=== PATIENT | female | born 1965 | race Caucasian/White ===

== ENCOUNTER → 2024-01-13 14:06 | Outpatient (REF) | payer BC, SELFPAY | LOC: RCS 14:06 | PROVIDERS: ATTENDING PHYSICIAN Physical Medicine & Rehabilitation; FAMILY PHYSICIAN Family Medicine | DX: Z01.818 Encounter for other preprocedural examination (principal) | CPT/HCPCS: 93005 ==

== ENCOUNTER 2024-02-25 06:30 | Emergency (ER) | payer BC, SELFPAY ==
[2024-02-25 06:42] VITALS: BP 137/73
[2024-02-25 07:42] LABS: Urine Albumin Negative (Neg - Trace); Urine Bilirubin Negative (Negative); Urine Character Clear (Clear); Urine Color Amber; Urine Glucose Negative (Negative); Urine Ketone Negative (Negative); Urine Leukocyte Negative (Negative); Urine Nitrite Negative (Negative); Urine Occult Blood Negative (Negative); Urine Urobilinogen Negative (Neg - 1+)
--- NOTE | 2024-02-25 08:25 | ED.GENMED ---
History of Present Illness
General
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
Time Seen by Provider: 02/25/24 08:15
Travel History
Have you had any contact with someone who has COVID-19?: No
Do you have any symptoms of coronavirus? Fever > 100 degrees, chills, cough, shortness of breath, sore throat, loss of taste or smell, muscle aches, or headache?: No
History of Present Illness
History of Present Illness:
58-year-old female with history of COPD and spontaneous pneumothorax is status post thoracic surgery presents to the emergency department for evaluation of left flank pain and urinary burning beginning last night. States she has had chronic left
flank pain and did previously have an ultrasound showing nonobstructing kidney stones. Over the past day the pain has been different. She also notes trace blood and questionable urinary sediment in the toilet bowl. Denies any fevers but does have
chills and nausea with vomiting. No anterior abdominal pain. Denies any lower extremity paresthesias.
Past History
Past History
ED Past Medical History: Asthma, COPD and Other (pneumothoraces, status post thoracotomy with removal of blebs, depression, migraine headaches, rheumatoid arthritis, uterine ablation, COPD, asthma)
ED Past Surgical History: , Gynecological and Other (Thoracotomy)
Social History
Tobacco: Non-smoker
Alcohol: Occasional
Living: with family
Employment: Employed
Family History
Family History: Other (Rheumatoid arthritis)
Review of Systems
Review of Systems
Allergies reviewed?: Yes
All Other Systems: ROS reviewed and negative except as documented in HPI and ROS
Phy Exam
Physical Exam
Physical Exam:
GEN: Well appearing, NAD, WDWN
HEENT: Oral mucosa moist, no scleral icterus
Cardiac: Regular rate
Lung: No respiratory distress, no tachypnea
Abdomen: Soft, nontender
MSK: No gross deformity or injuries
Skin: Good color, no pallor or jaundice, no rashes
Neuro: AO x3, moves all extremities freely
Psych: Calm, cooperative
Course
Orders/Labs/Results
Orders:
Orders
02/25/24 07:06
Urinalysis Reflex To Culture Urgent
Date Specimen was Collected: 02/25/24
Time Specimen was Collected: 06:46
02/25/24 08:26
CT Abd/pel Without Iv Or Oral Urgent
Comment:
Reason For Exam: L flank pain
Ketorolac [Toradol] 15 mg IV NOW STA
Ondansetron Injectable [Zofran] 4 mg IV NOW STA
02/25/24 08:35
Complete Blood Count/With Diff Urgent
Comprehensive Metabolic Panel Urgent
Abnormal Lab Results
02/25/24
08:35
WBC 12.2 H 10^3/uL
(4.8-10.8)
RBC 4.13 L 10^6/uL
(4.20-5.40)
Hct 36.5 L %
(37.0-47.0)
RDW 14.8 H %
(11.5-14.5)
Abs Immat Gran (auto) 0.1 H 10^3/uL
(0-0.05)
Absolute Neuts (auto) 8.9 H 10^3/uL
(1.4-6.5)
Absolute Monos (auto) 0.8 H 10^3/uL
(0.1-0.6)
Immature Gran % 0.7 H %
(0-0.5)
Lymphocytes % 18.0 L %
(20.5-51.1)
Carbon Dioxide 31 H mmol/L
(22-30)
BUN 24 H mg/dl
(7-17)
Total Protein 6.1 L g/dl
(6.3-8.2)
02/25/24 08:35
02/25/24 08:35
Vital Signs
Initial and Last Documented VS:
Initial Vital Signs
Temp Pulse Resp BP Pulse Ox
97.9 F 65 18 137/73 100
02/25/24 06:42 02/25/24 06:42 02/25/24 06:42 02/25/24 06:42 02/25/24 06:42
Last Documented Vital Signs
Temp Pulse Resp BP Pulse Ox
97.9 F 61 16 131/72 98
02/25/24 06:42 02/25/24 10:26 02/25/24 10:26 02/25/24 10:26 02/25/24 10:26
MDM/Problems Addressed
MDM/Problems Addressed:
CT reveals a distal left ureteral stone. Although it is 7 mm in size, she has no pain after administration of Toradol. Will discharge on NSAIDs and Flomax, supportive care and return parameters discussed. No evidence for infection, no evidence of
UTI, no indication for urgent procedural intervention
*Critical Care Note
Total Time (30-74mins, 75-104mins- exclusive of procedures): Not Applicable
ED Attending Note
-
Portions of this chart may have been created with voice recognition software.� Occasional wrong word or��sound alike� substitutions may have occurred due to the inherent limitations of voice recognition software.
Discharge Plan
Departure
Patient Disposition: Home (Routine Discharge)
Date of Disposition: 02/25/24
Time of Disposition: 09:56
Patient with high blood pressure during this ER visit?: No
Discharge Problem:
Ureterolithiasis
Instructions: Kidney Stone, Adult ED
Prescriptions:
New
ketorolac 10 mg tablet
10 mg PO Q8H PRN (Reason: Pain) Qty: 12 0RF
Rx Instructions:
maximum total duration of 5 days from all oral, intranasal, or parenteral formulations
tamsulosin [Flomax] 0.4 mg capsule
0.4 mg PO HS Qty: 10 0RF
No Action
lorazepam 0.5 MG tablet
0.5 mg PO Q4HPRN PRN (Reason: anxietY)
Patient Comments:
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
topiramate 100 MG tablet
200 mg PO QPM
ondansetron HCl 4 MG tablet
4 mg PO TIDPRN PRN (Reason: N/V)
methylprednisolone 4 MG tablet
12 mg PO DAILY
meclizine 25 MG tablet
25 mg PO [id number] PRN (Reason: VERTIGO)
methotrexate sodium (PF) 25 MG/ML solution
60 mg IJ .ON HOLD
Patient Comments:
patient said she not ure what she draw up she think it 60 ? she said the syringe is small like an insulon syringe
albuterol sulfate 1 PUFF HFA aerosol inhaler
1 puff inhalation R BID
aspirin 81 MG tablet,delayed release (DR/EC)
81 mg PO QPM
Patient Comments:
only take until d dimer goes down , next blood work in 1 week
tramadol 50 MG tablet
50 mg PO BIDPRN PRN (Reason: if maxalt doesnot work)
Patient Comments:
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
rizatriptan 10 MG tablet,disintegrating
10 mg PO DAILYPRN PRN (Reason: mirgrianes)
folic acid 1 MG tablet
1 mg PO DAILY
topiramate 100 MG tablet
100 mg PO DAILY
bupropion HCl 150 MG tablet extended release 24 hr
150 mg PO DAILY
cholecalciferol (vitamin D3) 1,000 UNITS tablet
1,000 units PO DAILY
oxycodone-acetaminophen [Percocet] 5-325 mg tablet
1 tab PO Q6HPRN PRN (Reason: pain) Qty: 10 0RF
Referrals:
Preston Cesar MD [Active] -
Apolonia Garsia DO [Family Provider] -
Interventions
Interventions:
*Risk Screen - Suicide Last Done: 02/25/24 06:42
*General Assessment Last Done: 02/25/24 09:02
*Neglect/Abuse Screening Last Done: 02/25/24 06:42
ED- Fall Risk Assessment Last Done: 02/25/24 09:02
*ED COVID-19 Vaccine History Last Done: 02/25/24 06:42
*Nursing Disposition Last Done: 02/25/24 10:00
ED-Female Genitourinary Assessment Last Done: 02/25/24 09:02
Discharge Date and Time
Discharge Date/Time: 02/25/24 10:00
Print Language: TELUGU
[2024-02-25] MEDS: ZOFRAN 4 MG IV (08:33)
[2024-02-25] MEDS: TORADOL 15 MG IV (08:34)
[2024-02-25 08:47] LABS: % Basophils 0.6 % (0-2); % Immature Granulocytes 0.7 % (0-0.5); % Monocytes 6.7 % (1.7-9.3); Absolute Basophils 0.1 10^3/uL (0-0.2); Absolute Eosinophils 0.1 10^3/uL (0-0.7); Absolute Immature Granulocytes 0.1 10^3/uL (0-0.05); Absolute Lymphocytes 2.2 10^3/uL (1.2-3.4); Absolute Monocytes 0.8 10^3/uL (0.1-0.6); Absolute Neutrophils 8.9 10^3/uL (1.4-6.5); Hematocrit 36.5 % (37.0-47.0); Hemoglobin 12.1 g/dL (12.0-16.0); Mean Corp Hgb Conc. 33.2 g/dL (33.0-37.0); Mean Corpuscular Hgb 29.3 pg (27.0-31.0); Mean Corpuscular Volume 88.4 fL (81.0-99.0); Mean Platelet Volume 8.9 fL (7.4-10.4); Nucleated Red Blood Cells % 0 %; Platelet Count 279 10^3/uL (130-400); Red Blood Cell Count 4.13 10^6/uL (4.20-5.40); Red Cell Dist. Width 14.8 % (11.5-14.5); White Blood Cell Count 12.2 10^3/uL (4.8-10.8)
[2024-02-25 08:59] LABS: ALT (SGPT) 14 U/L (0-35); AST (SGOT) 20 U/L (14-36); Albumin 3.8 g/dl (3.5-5.0); Alkaline Phosphatase 76 U/L (38-126); Blood Urea Nitrogen 24 mg/dl (7-17); Calcium 9.6 mg/dl (8.4-10.2); Carbon Dioxide 31 mmol/L (22-30); Chloride 103 mmol/L (98-107); Glucose 99 mg/dl (70-99); Potassium 3.7 mmol/L (3.5-5.1); Sodium 137 mmol/L (135-145); Total Bilirubin 0.4 mg/dl (0.2-1.3); Total Protein 6.1 g/dl (6.3-8.2); eGFR > 60.00
[2024-02-25 10:26] VITALS: BP 131/72
== END 2024-02-25 10:00 | disposition home or self-care (01) ==
LOC: EMR 06:30
PROVIDERS: EMERGENCY PHYSICIAN Emergency Medicine; FAMILY PHYSICIAN Family Medicine
DX: N20.1 Calculus of ureter (principal); Z87.442 Personal history of urinary calculi
CPT/HCPCS: 99284; 96374; 96375; 74176; 80053; 81003; 85025

== ENCOUNTER 2024-03-01 06:10 | Day surgery (SDC) | payer BC, MEDICARE, SELFPAY ==
[2024-03-01] VITALS (11 sets, daily range): BP systolic 100–134; BP diastolic 41–82; BMI 23.6
[2024-03-01] MEDS: NORMOSOL-R 1000 IV (07:31)
[2024-03-01] MEDS: Pyridium 200 MG PO (09:22)
[2024-03-05 15:21] LABS: Stone Analysis Mass 17 mg
== END 2024-03-01 11:10 | disposition home or self-care (01) ==
LOC: SDS 06:10
PROVIDERS: ATTENDING PHYSICIAN Urology
DX: N20.2 Calculus of kidney with calculus of ureter (principal)
CPT/HCPCS: 52353; 74018; 76000; 82365; C1769

== ENCOUNTER → 2024-03-31 15:52 | Outpatient (REF) | payer BC, MEDICARE, SELFPAY ==
[2024-03-31 16:23] LABS: % Basophils 0.9 % (0-2); % Eosinophils 2.4 % (0-6); % Immature Granulocytes 0.3 % (0-0.5); % Lymphocytes 38.6 % (20.5-51.1); % Monocytes 4.5 % (1.7-9.3); % Neutrophils 53.3 % (42.2-75.2); Absolute Basophils 0.1 10^3/uL (0-0.2); Absolute Eosinophils 0.2 10^3/uL (0-0.7); Absolute Lymphocytes 2.7 10^3/uL (1.2-3.4); Absolute Monocytes 0.3 10^3/uL (0.1-0.6); Absolute Neutrophils 3.7 10^3/uL (1.4-6.5); Hematocrit 37.7 % (37.0-47.0); Hemoglobin 12.2 g/dL (12.0-16.0); Mean Corp Hgb Conc. 32.4 g/dL (33.0-37.0); Mean Corpuscular Hgb 28.4 pg (27.0-31.0); Mean Corpuscular Volume 87.9 fL (81.0-99.0); Mean Platelet Volume 9.5 fL (7.4-10.4); Nucleated Red Blood Cells % 0 %; Platelet Count 242 10^3/uL (130-400); Red Blood Cell Count 4.29 10^6/uL (4.20-5.40); Red Cell Dist. Width 13.9 % (11.5-14.5); White Blood Cell Count 6.9 10^3/uL (4.8-10.8)
[2024-03-31 16:38] LABS: ALT (SGPT) 27 U/L (0-35); AST (SGOT) 33 U/L (14-36); Albumin 4.3 g/dl (3.5-5.0); Alkaline Phosphatase 71 U/L (38-126); Blood Urea Nitrogen 16 mg/dl (7-17); Calcium 9.7 mg/dl (8.4-10.2); Carbon Dioxide 26 mmol/L (22-30); Chloride 104 mmol/L (98-107); Glucose 120 mg/dl (70-99); Potassium 3.9 mmol/L (3.5-5.1); Sodium 140 mmol/L (135-145); Total Bilirubin 0.7 mg/dl (0.2-1.3); Total Protein 6.5 g/dl (6.3-8.2); eGFR > 60.00
[2024-03-31 16:40] LABS: C-Reactive Protein < 5.00 mg/L (0.0-10.00)
[2024-03-31 16:41] LABS: Erythrocyte Sed Rate 18 mm/hour (0-20)
== END ==
LOC: REG 15:52
PROVIDERS: ATTENDING PHYSICIAN Physician Assistant; FAMILY PHYSICIAN Family Medicine
DX: M06.00 Rheumatoid arthritis without rheumatoid factor, unspecified site (principal); Z79.60 Long term (current) use of unspecified immunomodulators and immunosuppressants
CPT/HCPCS: 36415; 80053; 85025; 85652; 86140

== ENCOUNTER → 2024-04-11 11:50 | Outpatient (REF) | payer BC, MEDICARE, SELFPAY | LOC: HWRAD 11:50 | PROVIDERS: ATTENDING PHYSICIAN Internal Medicine Rheumatology; FAMILY PHYSICIAN Family Medicine | DX: M81.0 Age-related osteoporosis without current pathological fracture (principal) | CPT/HCPCS: 77080 ==

== ENCOUNTER → 2024-04-20 10:28 | Outpatient (REF) | payer BC, MEDICARE, SELFPAY ==
[2024-04-20 11:40] VITALS: BP 120/56; BP_SYST 88
== END ==
LOC: RADI 10:28
PROVIDERS: ATTENDING PHYSICIAN Internal Medicine Endocrinology, Diabetes & Metabolism; FAMILY PHYSICIAN Family Medicine
DX: E04.1 Nontoxic single thyroid nodule (principal)
CPT/HCPCS: 88173; 10005

== ENCOUNTER → 2024-05-09 10:24 | Outpatient (REF) | payer BC, SELFPAY ==
[2024-05-09 11:53] LABS: HDL Cholesterol 83 mg/dl; LDL Cholesterol, Calculated 78 mg/dl; Total Cholesterol 178 mg/dl (50-199); Triglyceride 89 mg/dl (10-149); Very Low Density Lipoprotein 17 mg/dl (0-30)
[2024-05-09 12:11] LABS: FSH 81.6 mIU/ml; Prolactin 10.6 ng/ml (3.0-18.6)
[2024-05-09 12:25] LABS: TSH Reflex To Free T4 2.64 uIU/ml (0.47-4.68)
[2024-05-09 12:26] LABS: Cortisol, Random 6.6 ug/dl; Estradiol 26.7 pg/ml
[2024-05-10 16:05] LABS: IGF-1 Z Score Calculation 0.3; Insulin-like Growth Factor I 132 ng/mL (43-241)
[2024-05-11 08:04] LABS: Quantiferon Mitogen minus NIL 9.98 IU/mL; Quantiferon NIL 0.02 IU/mL; Quantiferon Plus TB1 minus NIL 0.02 IU/mL (<=0.34); Quantiferon Plus TB2 minus NIL 0.04 IU/mL (<=0.34); Quantiferon TB Gold Plus Negative (Negative)
== END ==
LOC: REG 10:24
PROVIDERS: ATTENDING PHYSICIAN Internal Medicine Endocrinology, Diabetes & Metabolism; FAMILY PHYSICIAN Family Medicine; REFERRING PHYSICIAN Internal Medicine Rheumatology
DX: E78.5 Hyperlipidemia, unspecified (principal); E23.6 Other disorders of pituitary gland; M06.00 Rheumatoid arthritis without rheumatoid factor, unspecified site
CPT/HCPCS: 36415; 80061; 82533; 82670; 83001; 83002; 84146; 84305; 84443; 86480

== ENCOUNTER 2024-07-07 21:36 | Observation (INO) | payer BC, MEDICARE, SELFPAY ==
[2024-07-07] VITALS (13 sets, daily range): BP systolic 99–146; BP diastolic 63–84; BMI 26.8; BMI 24.3; BMI 24.8
--- NOTE | 2024-07-07 18:01 | ED.PDOC.TRB ---
ED Provider Triage
-
Patient seen by provider in Triage?: Seen in Triage
59-year-old female presents with chest pain for 4 to 5 days burning in nature to the lower chest and her back. Not pleuritic in nature. No recent travel or surgery. Vitals are stable. She states she recently had a calcium score of the heart
which showed calcification of one of the arteries. 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 EKG labs and troponin ordered.
[2024-07-07 18:23] LABS: % Basophils 1.1 % (0-2); % Eosinophils 1.3 % (0-6); % Immature Granulocytes 0.7 % (0-0.5); % Lymphocytes 30.5 % (20.5-51.1); % Monocytes 6.5 % (1.7-9.3); % Neutrophils 59.9 % (42.2-75.2); Absolute Basophils 0.1 10^3/uL (0-0.2); Absolute Eosinophils 0.1 10^3/uL (0-0.7); Absolute Immature Granulocytes 0.1 10^3/uL (0-0.05); Absolute Lymphocytes 2.3 10^3/uL (1.2-3.4); Absolute Monocytes 0.5 10^3/uL (0.1-0.6); Absolute Neutrophils 4.5 10^3/uL (1.4-6.5); Hematocrit 38.3 % (37.0-47.0); Hemoglobin 12.8 g/dL (12.0-16.0); Mean Corp Hgb Conc. 33.4 g/dL (33.0-37.0); Mean Corpuscular Hgb 28.7 pg (27.0-31.0); Mean Corpuscular Volume 85.9 fL (81.0-99.0); Mean Platelet Volume 9.7 fL (7.4-10.4); Nucleated Red Blood Cells % 0 %; Platelet Count 269 10^3/uL (130-400); Red Blood Cell Count 4.46 10^6/uL (4.20-5.40); Red Cell Dist. Width 15.2 % (11.5-14.5); White Blood Cell Count 7.5 10^3/uL (4.8-10.8)
[2024-07-07 18:29] LABS: ALT (SGPT) 25 U/L (0-35); AST (SGOT) 32 U/L (14-36); Albumin 4.4 g/dl (3.5-5.0); Alkaline Phosphatase 61 U/L (38-126); Blood Urea Nitrogen 18 mg/dl (7-17); Calcium 9.7 mg/dl (8.4-10.2); Carbon Dioxide 29 mmol/L (22-30); Chloride 103 mmol/L (98-107); Glucose 146 mg/dl (70-99); Potassium 3.7 mmol/L (3.5-5.1); Sodium 141 mmol/L (135-145); Total Bilirubin 0.5 mg/dl (0.2-1.3); Total Protein 6.6 g/dl (6.3-8.2); eGFR > 60.00
[2024-07-07 18:40] LABS: Troponin I < 0.012 ng/ml
[2024-07-07] MEDS: NITROSTAT (SUBLINGUAL) 0.4 MG SL ×2 (20:06→23:18)
--- NOTE | 2024-07-07 20:44 | ED.GENMED ---
History of Present Illness
General
Chief Complaint: Chest Pain
Time Seen by Provider: 07/07/24 18:55
History of Present Illness
History of Present Illness:
59-year-old female with history of RA presents to the emergency department for evaluation of exertional shortness of breath and chest discomfort ongoing for the past 3 to 4 days. Over the past 2 days she has had increased 'indigestion' present at
all times that is not receptive to her normal pantoprazole as well as [id number] antacids. Denies any positional nature of symptoms and does note that the heartburn seems to worsen with exertion. She is scheduled for a stress test through
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 She also had a coronary calcium score done at [facility] approximately 18 months ago that showed an LAD score of 37 with no disease elsewhere.
Past History
Past History
ED Past Medical History: Asthma, COPD and Other (pneumothoraces, status post thoracotomy with removal of blebs, depression, migraine headaches, rheumatoid arthritis, uterine ablation, COPD, asthma)
ED Past Surgical History: , Gynecological and Other (Thoracotomy)
Social History
Tobacco: Non-smoker
Alcohol: Occasional
Living: with family
Employment: Employed
Family History
Family History: Other (Rheumatoid arthritis)
Review of Systems
Review of Systems
Allergies reviewed?: Yes
All Other Systems: ROS reviewed and negative except as documented in HPI and ROS
Phy Exam
Physical Exam
Physical Exam:
GEN: Well appearing, NAD, WDWN
HEENT: Oral mucosa moist, no scleral icterus
Cardiac: Regular rate and rhythm, no murmurs
Lung: No respiratory distress, no tachypnea, lungs clear to auscultation bilaterally
MSK: No gross deformity or injuries
Skin: Good color, no pallor or jaundice, no rashes
Neuro: AO x3, moves all extremities freely
Psych: Calm, cooperative
Scores
Heart Score for Chest Pain Patients
STEMI patient?: No
History: Moderately Suspicious
ECG: Normal
Age: >45 - <65 years
Risk Factors: 1 or 2 Risk Factors
Troponin: </= Normal Limit
Heart Score for Chest Pain Patients: 3
Heart Score Risk: 2.5% MACE over next 6 weeks
Course
Orders/Labs/Results
Orders:
Orders
07/07/24 17:54
ECG [Electrocardiogram (*1)] Urgent
Reason for Study: Chest Pain
07/07/24 17:55
EKG- Treatment ONCE
07/07/24 18:00
CR Chest - 2 Views Urgent
Comment:
Reason For Exam: chest pain
07/07/24 18:06
Complete Blood Count/With Diff Urgent
Comprehensive Metabolic Panel Urgent
Troponin I Urgent
07/07/24 19:49
Nitroglycerin Sublingual [Nitrostat (Sublingual)] 0.4 mg SL NOW STA
Abnormal Lab Results
07/07/24
18:06
RDW 15.2 H %
(11.5-14.5)
Abs Immat Gran (auto) 0.1 H 10^3/uL
(0-0.05)
Immature Gran % 0.7 H %
(0-0.5)
BUN 18 H mg/dl
(7-17)
Glucose 146 H mg/dl
(70-99)
07/07/24 18:06
07/07/24 18:06
Vital Signs
Initial and Last Documented VS:
Initial Vital Signs
Temp Pulse Resp BP Pulse Ox
98 F 83 18 139/69 100
07/07/24 17:57 07/07/24 17:57 07/07/24 17:57 07/07/24 17:57 07/07/24 17:57
Last Documented Vital Signs
Temp Pulse Resp BP Pulse Ox
98 F 58 18 119/74 98
07/07/24 17:57 07/07/24 20:05 07/07/24 20:05 07/07/24 20:11 07/07/24 20:05
MDM/Problems Addressed
MDM/Problems Addressed:
Patient is moderate risk for ACS based on her clinical picture however I am concerned for the rest symptoms that are not resolving. However EKG is nonischemic and troponin is reassuring. She was given 1 dose of sublingual nitroglycerin with
resolution of symptoms. This is highly concerning for acute coronary syndrome. Will admit to the hospitalist service for further cardiac testing and cardiology consult if warranted.
Comment
Comment:
EKG independently interpreted by me shows normal sinus rhythm with a right bundle branch block, no ischemic changes, no changes when compared to EKG from January 2024
*Critical Care Note
Total Time (30-74mins, 75-104mins- exclusive of procedures): Not Applicable
ED Attending Note
-
Portions of this chart may have been created with voice recognition software.� Occasional wrong word or��sound alike� substitutions may have occurred due to the inherent limitations of voice recognition software.
Discharge Plan
Departure
Patient Disposition: Admit
Date of Disposition: 07/07/24
Time of Disposition: 20:44
Admit to: Telemetry
Presentation/result/management discussed w/ accepting MD/DO: Hospitalist
Discharge Problem:
Chest pain with moderate risk of acute coronary syndrome
Prescriptions:
No Action
albuterol sulfate 1 PUFF HFA aerosol inhaler
1 puff inhalation PRN PRN (Reason: sob)
tramadol 50 MG tablet
50 mg PO BIDPRN PRN (Reason: if maxalt doesnot work)
Patient Comments:
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
folic acid 1 MG tablet
1 mg PO DAILY
cyclobenzaprine 10 mg Tablet
10 mg PO PRN PRN (Reason: neck pain)
gabapentin 400 mg Capsule
400 mg PO TID
pantoprazole 40 mg Tablet,Delayed Release (Dr/Ec)
40 mg PO DAILY
eletriptan 40 mg Tablet
40 mg PO PRN PRN (Reason: migraines)
rosuvastatin [Crestor] 5 mg Tablet
5 mg PO DAILY
cholecalciferol (vitamin D3) [Vitamin D3] 50 mcg (2,000 unit) Capsule
50 mcg PO DAILY
Orencia 125 mg/mL Syringe
250 mg SC DIRECTED
Referrals:
Apolonia Garsia DO [Family Provider] -
Interventions
Interventions:
*Risk Screen - Suicide Last Done: 07/07/24 18:26
*General Assessment Last Done: 07/07/24 18:26
*Neglect/Abuse Screening Last Done: 07/07/24 18:26
ED- Fall Risk Assessment Last Done: 07/07/24 18:26
*ED COVID-19 Vaccine History Last Done: 07/07/24 18:26
ED- Cardiac Assessment Last Done: 07/07/24 18:26
Discharge Date and Time
Print Language: CROATIAN
--- NOTE | 2024-07-07 20:47 | HPS.HSE ---
Family Physician
-
Family Physician: Apoolnia Garsia, DO
Chief Complaint
-
chest pain
History of Present Illness
Ms. Gladys Hammond is a 59 yo woman with hx asthma/COPD, pneumothoraces s/p thoracotomy with removal of blebs, migraine, RA presents to the ER with chest discomfort.
She states that since Thursday she has had mid epigastric discomfort that she thought was gastritis. She took Mylanta and Tums without relief. She also described increased shortness of breath with any exertion, she noticed when walking up a flight
of stairs. She states exertion affects her breathing but not her chest discomfort. Food does not affect discomfort. The pain has been increasing in intensity since Thursday and then reports it completely resolved after she was given nitro here in
the ER.
She has been eating less because she thought she had indigestion but eating does not exacerbate pain. + nausea, no vomiting. She has felt constipated and treated herself with an enema this morning. No fevers/chills. + headaches (chronic). No LE
swelling.
Patient recently had testing that showed elevated calcium score and was due for stress test next week with her cardiology at [facility].
Medical History
Past Medical History
Past Medical History: Reports Other (asthma/COPD, pneumothoraces s/p thoracotomy with removal of blebs, migraine, RA)
Past Surgical History: Reports Other (Thoracotomy, Tonsilectomy, Ortho, )
Social History
Tobacco: Non-smoker
Alcohol: Occasional
Family History
Family History: Not pertinent
Allergies / Home Medications
Allergies reflects when Allergies were last updated in [employer].
Home Medications with original date entered in [employer]
Allergy/Medication List:
Allergies
Allergy/AdvReac Type Severity Reaction Status Date / Time
amoxicillin [Amoxicillin] Allergy Hives Verified 07/07/24 17:57
Cephalosporins Allergy Hives Verified 07/07/24 17:57
Penicillins Allergy Hives Verified 07/07/24 17:57
prochlorperazine edisylate Allergy anxiety Verified 07/07/24 17:57
[From Compazine]
prochlorperazine maleate Allergy anxiety Verified 07/07/24 17:57
[From Compazine]
propoxyphene HCl Allergy Rash Verified 07/07/24 17:57
[From Darvon]
tetracycline [Tetracycline] Allergy Hives Verified 07/07/24 17:57
Bactrim Allergy Mild Hives Uncoded 07/07/24 17:57
Home Medications
albuterol sulfate 90 mcg/actuation aerosol inhaler 1 puff inhalation PRN PRN sob 08/01/21
folic acid 1 mg tablet 1 mg PO DAILY 08/28/21
tramadol 50 mg tablet 50 mg PO BIDPRN PRN if maxalt doesnot work 08/28/21
abatacept 125 mg/mL subcutaneous syringe (Orencia) 250 mg SC DIRECTED 02/29/24
cholecalciferol (vitamin D3) 50 mcg (2,000 unit) capsule (Vitamin D3) 50 mcg PO DAILY 02/29/24
cyclobenzaprine 10 mg tablet 10 mg PO PRN PRN neck pain 02/29/24
eletriptan 40 mg tablet 40 mg PO PRN PRN migraines 02/29/24
gabapentin 400 mg capsule 400 mg PO TID 02/29/24
pantoprazole 40 mg tablet,delayed release 40 mg PO DAILY 02/29/24
rosuvastatin 5 mg tablet (Crestor) 5 mg PO DAILY 02/29/24
Review of Systems
-
History Source: Patient
A 12 point ROS was completed and negative except as noted: Yes
Physical Exam
Vital Signs
Vital Signs
Temp Pulse Resp BP Pulse Ox
98 F 58 18 119/74 98
07/07/24 17:57 07/07/24 20:05 07/07/24 20:05 07/07/24 20:11 07/07/24 20:05
Physical Exam
General: No Apparent Distress
HEENT: PERRLA
Respiratory: Clear; No Wheezes
Cardiac: S1/S2 and Regular Rhythm
GI: Soft and Non Tender
Musculoskeletal: No Edema
Skin: Warm and Dry; No Rash
Neuro: AO x 3
Psych: Calm
Laboratory Results
-
07/07/24 18:06
07/07/24 18:06
Laboratory Results
Total Bilirubin 0.5 mg/dl (0.2-1.3) 07/07/24 18:06
AST 32 U/L (14-36) 07/07/24 18:06
ALT 25 U/L (0-35) 07/07/24 18:06
Alkaline Phosphatase 61 U/L (38-126) 07/07/24 18:06
Troponin I < 0.012 ng/ml 07/07/24 18:06
Data Reviewed
-
Diagnostic Radiology: Report Reviewed by me
Lab Data: Labs Reviewed by me
Impression/Plan
-
Ms. Gladys Hammond is a 59 yo woman with hx asthma/COPD, pneumothoraces s/p thoracotomy with removal of blebs, migraine, RA presents to the ER with chest discomfort.
Triage VS: T 98, P 83, RR 18, BP 139/69, SpO2 100%
LABS: WBC 7.5, Hg 12.8, PLT 269, Na 141, K+ 3.7, Cl 103, BUN 18, Cr 0.8, Glucose 146, liver enzymes WNL, Trop < 0.012
EKG: NSR with RBBB, no significant change from 01/13/24
Chest pain
-parts of story concerning for angina, associated with shortness of breath with exertion although chest discomfort not affected by activity. Reassuring that Troponin is negative and symptoms on-going x several days. Per patient, completely
relieved with nitro
-will give full dose asa now and continue 81mg PO QD
-admit to telemetry, observation
-trend Troponins
-Cardiology consult
-NPO after MN
-lipid panel and A1c in AM
Hyperlipidemia
-COOK LARDER statin
GERD
-unclear if epigastric discomfort related to GERD as well, although per patient this is more intense
-will give IV Protonix while here
Hx Pneumothoraces s/p Thoracotomy
RA
-Takes Methotrexate and Orencia as outpatient
Hx Migraines
-hold COOK LARDER Eletriptan while working up angina
Cervical Radiculopathy
-COOK LARDER Gabapentin
-COOK LARDER Cyclobenzaprine
DVT PPx SCD
FULL CODE
[2024-07-07] MEDS: ASPIRIN 325 MG PO (21:19)
[2024-07-07] MEDS: PROTONIX IV 40 MG IV (21:19)
[2024-07-07] MEDS: NEURONTIN 400 MG PO (23:18)
[2024-07-07] MEDS: CRESTOR 5 MG PO (23:18)
--- NOTE | 2024-07-07 23:30 | PTCARENOTE ---
Addendum entered by Isreal Al RN 07/08/24 05:45:
House RAUL Contreras updated on pt receiving PRN dose of nitrostat and that the pt's chest pain resolved after 1 administration of nitrostat.
Original Note:
Pt arrived to unit from ED and ambulated independently from stretcher to bed. Pt is AAOx3, VS stable on admission. Pt reports 4/10 sternal/substernal pain; PRN nitro SL provided to pt; pt reports that chest pain resolved after nitro
administration. Plan of care discussed with pt and pt's Jerel at bedside.
[2024-07-08] VITALS (14 sets, daily range): BP systolic 95–118; BP diastolic 55–92; BMI 24.8
[2024-07-08 00:51] LABS: Troponin I < 0.012 ng/ml
[2024-07-08 03:56] LABS: Troponin I < 0.012 ng/ml
[2024-07-08 07:47] LABS: Blood Urea Nitrogen 15 mg/dl (7-17); Calcium 9.4 mg/dl (8.4-10.2); Carbon Dioxide 29 mmol/L (22-30); Chloride 105 mmol/L (98-107); Estimated Creatinine Clearance 73 ml/min; Glucose 83 mg/dl (70-99); HDL Cholesterol 76 mg/dl; LDL Cholesterol, Calculated 55 mg/dl; Potassium 3.7 mmol/L (3.5-5.1); Sodium 144 mmol/L (135-145); Total Cholesterol 143 mg/dl (50-199); Triglyceride 60 mg/dl (10-149); Very Low Density Lipoprotein 12 mg/dl (0-30); eGFR > 60.00
--- NOTE | 2024-07-08 08:19 | W.PN.HOSP.TC ---
Addendum entered and electronically signed by Gregor Baez MD 07/08/24 21:58:
Attending Addendum-
I saw and evaluated the patient. I reviewed the resident�s note and agree with findings and plan as documented in the resident�s note. Sub: continues to have intermittent central/left sided CP Full 12 point ROS reviewed and negative except as
documented Exam: Vitals reviewed in chart GEN- NAD heart RRR lungs clear abd soft LE no edema
# Chest pain
-highly suspicious for cardiac etiology
-completely relieved with nitro
-cont hep gtt
-trend Troponins
-check echo
-Cardiology input appreciated
-for cardiac cath 07/08
# Hyperlipidemia
- cont crestor
# GERD
-unclear if epigastric discomfort related to GERD as well, although per patient this is more intense
-cont protonix
# Depression
- cont Wellbutrin
# Hx Pneumothoraces s/p Thoracotomy
# RA
-Takes Methotrexate and Orencia as outpatient
# Hx Migraines
-hold Eletriptan
# Cervical Radiculopathy
-cont Gabapentin
-cont Cyclobenzaprine
DVT PPx SCD
FULL CODE
Dispo possible DC home after cath if clean
Time spent coordinating care, review of plan of care with resident, personally reviewed records in EMR, med rec, consults, notes, labs, radiology, d/w nursing � 55 mins
Original Note:
Today's Communication/Plan
-
Echo pending, cardiology consulted
Assessment / Plan
Assessment / Plan
59 year old female with PMH asthma, COPD, pneumothoraces s/p thoracotomy with bleb resection, HLD, RA, hiatal hernia who presented to ED 07/07 for chest pain.
#Chest pain
#Shortness of breath
- Differential diagnosis includes ACS, angina, esophageal spasm, hiatal hernia
- Relieved by nitro raises concern for angina or spasm. However, reassured by stable vitals, EKG, negative troponin
- Patient previously tried inhaler, tylenol, advil, dietary modifications, mylanta, pantoprazole, gabapentin, lorazepam, methylprednisolone with no relief, which decreases concern for asthma, msk, GERD, anxiety, or RA related causes of chest pain.
- Reviewed chest xray report and images, negative for acute cardiopulm abnormality.
- Lipid panel, A1C, BMP wnl
- Echo performed- report pending.
- Cardiology consulted, appreciate recs.
- Continue telemetry, ASA, statin, nitro prn, trend troponin, NPO
#Asthma, COPD- home albuterol inhaler prn
#HLD- home home rosuvastatin 5mg daily
#RA, cervical radiculopathy- continue home gabapentin 400mg TID, cyclobenzaprine prn; has not required tramadol in >1 month
#GERD- continue home pantoprazole 40mg daily
#migraine- asymptomatic, has not required home eletriptan in 1-2 months
#anxiety- continue home buproprion 150mg daily
Diet: NPO
DVT ppx: ambulation as tolerated, SCDs
Dispo planning: TBD, anticipate discharge home
Anticipated Discharge: 24 - 48 hours
Subjective/Interval History
-
Date of Service: July 08, 2024
Overnight, her chest pain was relieved with nitro. This morning, she reports that her chest pain is present while she is resting in bed and she rates it a 3/10 in intensity. She says this is the same pain that she has been experiencing at home. At
time of this evaluation, she continues to report shortness of breath which is worse if laying flat and now needs 2 pillows instead of 1 at night to sleep. Also reports intermittent light headedness. She denies fevers, chills, dizziness,
palpitations, syncope/presyncope, cough, nausea, vomiting. She is tolerating PO diet and denies difficulty, pain, choking, coughing when she is eating/swallowing. Last bowel movement was yesterday morning and she denies diarrhea, constipation, black
or blood stools. She ambulates without assistance.
Objective Data
-
Labs:
Laboratory Results
07/08/24
06:24
Sodium 144
Potassium 3.7
Chloride 105
Carbon Dioxide 29
BUN 15
Creatinine 0.8
Glucose 83
Calcium 9.4
Vital Signs:
Vital Signs
Temp Pulse Resp BP Pulse Ox
97.6 F 60 18 107/68 97
07/08/24 03:54 07/08/24 03:54 07/08/24 03:54 07/08/24 03:54 07/08/24 03:54
I&O
07/07/24 07/08/24 07/09/24
06:59 06:59 06:59
Intake Total 240 / 240
Balance 240 / 240
Review of Systems
-
History Source: Patient
All other systems: Reviewed and negative
Physical Exam
-
General: Well Developed, Well Nourished, No Apparent Distress, Comfortable, Conversant and Other (well appearing, sitting up in bed)
HEENT: Normocephalic and Atraumatic
Respiratory: Crackles (mild crackles throughout, symmetric bilaterally), Non Labored Respirations and Other (no visible deformities or trauma of chest, nontender to palpation); Negative Wheezes or Accessory Resp Muscle Use
Cardiac: Regular Rhythm and S1/S2; Negative Murmur or Calf Tenderness
GI: Soft, Nontender, Nondistended and Normal Bowel Sounds
Musculoskeletal: No Cyanosis and No Edema
Skin: Warm and Dry
Neuro: Awake, Alert and Oriented
Psych: Calm
Data Reviewed
-
Diagnostic Radiology: Image personally visualized and interpreted, Report Reviewed by me and Discussed with Physician
Medical Tests (Nuc Med, Echo etc): Report Reviewed by me and Discussed with Physician
Labs: Labs Reviewed by me and Discussed with Physician
[2024-07-08 08:49] LABS: Glycohemoglobin (HgbA1c) 5.4 % (4.0-5.6)
--- NOTE | 2024-07-08 08:50 | CON.CAR ---
Addendum entered and electronically signed by Aryan Florence MD 07/08/24 09:29:
59 yo female with PMH of RBBB, elevated calcium score, hyperlipidemia, rheumatoid arthritis is admitted with DAILEY and chest pain. She feels worse with stairs; but sometimes gets chest pain at rest. Here, is has responded to SL nitro. Exam with RRR,
no murmurs, no edema. TnI <0.012. EKG: NSR, RBBB, no acute ischemic changes. Echo: EF 50-55%, no sig valve disease.
Concern for ACS/unstable angina. ASA, heparin drip. Proceed to clinical laboratory service teacher.
Original Note:
Consultation
Consultation Request
Date/Time Consultation Requested: 07/07/24 10:30p
Date/Time Consultation Performed: 07/08/24 8a
Requesting Provider: Dr. Jordan
Performing Provider: SWETA Diaz for Dr. Florence
Reason for Consultation: chest pain/dailey
Medical History
-
Chief Complaint: dailey/chest pain
History of Present Illness:
Mrs. Rohan Hammond is a 59 yo female with asthma, RA, HLD, RBBB, GERD and cervical spine disease, who presents to the ER with c/o DAILEY and chest pain intermittently for 2 weeks. She describes the chest pain as midsternal mild indigestion that
radiates to her b/l chest and back that feels like a muscle pull. There is associated SOB/DAILEY. Symptoms are worse with exertion, walking the stairs or while carrying heavy things. She also notes chest pain while at rest. She is admitted to the
hospitalist service and we are consulted for chest pain/DAILEY. She has a mule tender at [facility], Dr. Evangelista Guevara, who she just saw last week for c/o chest pain/DAILEY. She is scheduled for a Lexiscan nuclear stress test next Thursday. Last year
a CT coronary calcium score was 38 and he started Crestor 5mg daily. LDL is 55 on labs today. Troponin x 3 are < 0.012 and EKG shows SB 55 with RBBB, no ischemia.
Past Medical History
Past Medical History: Other (as above)
Past Surgical History: Other (as above)
Social History
Tobacco: Non-Smoker
Alcohol: Occasional (2 drinks a month)
Personal:
Living: With Family
Family History
Family History: CAD (mother had PCI in her 60s)
Allergies / Home Medications
Allergy/AdvReac Type Severity Reaction Status Date / Time
amoxicillin [Amoxicillin] Allergy Hives Verified 07/07/24 17:57
Cephalosporins Allergy Hives Verified 07/07/24 17:57
Penicillins Allergy Hives Verified 07/07/24 17:57
prochlorperazine edisylate Allergy anxiety Verified 07/07/24 17:57
[From Compazine]
prochlorperazine maleate Allergy anxiety Verified 07/07/24 17:57
[From Compazine]
propoxyphene HCl Allergy Rash Verified 07/07/24 17:57
[From Darvon]
sulfamethoxazole Allergy Hives Verified 07/07/24 21:16
[From Bactrim]
tetracycline [Tetracycline] Allergy Hives Verified 07/07/24 17:57
trimethoprim [From Bactrim] Allergy Hives Verified 07/07/24 21:16
�Medication �Instructions �Recorded �Confirmed �Type
albuterol sulfate 90 mcg/actuation 1 puff inhalation PRN PRN sob 08/01/21 07/07/24 History
aerosol inhaler
folic acid 1 mg tablet 1 mg PO DAILY 08/28/21 07/07/24 History
tramadol 50 mg tablet 50 mg PO BIDPRN PRN if maxalt 08/28/21 07/07/24 History
doesnot work
abatacept 125 mg/mL subcutaneous 250 mg SC DIRECTED 02/29/24 07/07/24 History
syringe (Orencia)
cholecalciferol (vitamin D3) 50 50 mcg PO DAILY 02/29/24 07/07/24 History
mcg (2,000 unit) capsule (Vitamin
D3)
cyclobenzaprine 10 mg tablet 10 mg PO PRN PRN neck pain 02/29/24 07/07/24 History
eletriptan 40 mg tablet 40 mg PO PRN PRN migraines 02/29/24 07/07/24 History
gabapentin 400 mg capsule 400 mg PO TID 02/29/24 07/07/24 History
pantoprazole 40 mg tablet,delayed 40 mg PO DAILY 02/29/24 07/07/24 History
release
rosuvastatin 5 mg tablet (Crestor) 5 mg PO DAILY 02/29/24 07/07/24 History
Review of Systems
-
History Source: Patient
All other systems: Negative unless noted
Physical Exam
Vital Signs
Temp Pulse Resp BP Pulse Ox
97.6 F 60 18 107/68 97
07/08/24 03:54 07/08/24 03:54 07/08/24 03:54 07/08/24 03:54 07/08/24 03:54
Lab Results
07/07/24 18:06
07/08/24 06:24
Troponin I < 0.012 ng/ml 07/08/24 03:09
Physical Exam
General: Well Developed, Well Nourished and No Apparent Distress
HEENT: Normocephalic, Anicteric and Moist Mucous Membranes
Respiratory: Clear and Non Labored Respirations
Cardiac: S1/S2 and Regular Rhythm
Breast: Deferred by me
GI: Soft, Non Tender, Non Distended and Normal Bowel Sounds
Rectal: Deferred by Provider
Genito-urinary: No Costovertebral Tender
Musculoskeletal: No Clubbing, No Cyanosis and No Edema
Skin: Warm and Dry
Neuro: AO x 3
Hematologic/Lymphatic: No Lymphadenopathy
Psych: Calm
Impression / Plan
-
Chest pain - intermittent x 2 weeks.
- occurs with rest and exertion, associated DAILEY.
- resolved with SL NTG in the ER and early this am.
- currently she has mild chest pain.
- echo done this am.
- she is scheduled for outpatient Lexiscan next Thursday as ordered by her mule tender, given her symptoms.
- elevated CT coronary calcium score of 38 last year, so her mule tender started Crestor 5mg daily.
- troponin x 3 < 0.012, EKG w/o ischemia.
- pending echo results, consider [facility] today.
Asthma/DAILEY - worse with exertion.
- follows with pulmonary at [facility].
- h/o left apical pleural bleb resection.
- CT in 2019 showed scarring in the left lung apex and superior segment of the left lower lobe. Mild herniation of pleural fat and intercostal muscle through the left 7th-8th posterolateral rib interspace and into the pleural
space causing mild compression on the lung.
HLD - on Crestor 5mg daily.
- LDL 55.
RA - chronic.
- increased risk for CAD.
GERD - chronic.
- on Protonix as outpatient.
- could be contributing to her recent symptoms.
Data Reviewed
-
EKG: Tracing Personally Visualized and interpreted (SB 53 bpm, RBBB)
Radiology: Report Reviewed by me (CXR: NAD)
CT Scan: Report Reviewed by me (chest 2019: prior left apical pleural bleb resection with scarring of left lung apex, superior segment of the left lower lobe. Mild herniation of pleural fat and intercostal muscle through the left 7th-8th
posterolateral rib interspace and into the pleural space causing mild compression on the lung)
Labs: Labs Reviewed by me
[2024-07-08] MEDS: NITROSTAT (SUBLINGUAL) 0.4 MG SL ×2 (09:38→09:55)
[2024-07-08] MEDS: FOLVITE 1 MG PO (09:42)
[2024-07-08] MEDS: LOW STRENGTH ASPIRIN 81 MG PO (09:42)
[2024-07-08] MEDS: PROTONIX IV 40 MG IV (09:42)
[2024-07-08] MEDS: NEURONTIN 400 MG PO ×3 (09:42→21:12)
[2024-07-08] MEDS: NSS (PRESERVATIVE FREE) 10 ML IV (09:43)
[2024-07-08 09:47] LABS: Hematocrit 35.9 % (37.0-47.0); Mean Corp Hgb Conc. 33.4 g/dL (33.0-37.0); Mean Corpuscular Hgb 28.8 pg (27.0-31.0); Mean Corpuscular Volume 86.1 fL (81.0-99.0); Mean Platelet Volume 9.8 fL (7.4-10.4); Platelet Count 242 10^3/uL (130-400); Red Blood Cell Count 4.17 10^6/uL (4.20-5.40); White Blood Cell Count 5.6 10^3/uL (4.8-10.8)
[2024-07-08 09:55] LABS: APTT 31.5 Sec (23.4-35.0)
[2024-07-08] MEDS: HEPARIN 4000 UNITS IV (10:52)
[2024-07-08] MEDS: HEPARIN 25000 UNITS/250 ML IV (10:55)
--- NOTE | 2024-07-08 14:54 | CM ---
Patient seen bedside.
IA completed.
Lives with spouse in 3 story home, some sob with stairs.
Independent prior to admission without AD.
Drives. retired.
No Hx VN.
dx chest pain, plan cardiac cath.
PCP: Dr Garsia
Pharmacy: [facility]
Plan: home no needs. Spouse will transport.
--- NOTE | 2024-07-08 14:59 | ITS.CL.CATH ---
Information Services Vice President - Catheterization
Cardiac Catheterization
Procedure Report:
CARDIAC CATHETERIZATION REPORT
Date of Procedure: 07/08/2024
Referring: Dr. Michele Florence
INDICATION: chest pain
PROCEDURE:
1. Left heart catheterization
2. Coronary angiography
ACCESS:
6 Cambodian right radial artery
CATHETERS:
1. 6 Cambodian JR4
2. 6 Cambodian JL3.5
HEMODYNAMIC DATA
LV 107/5 (EDP 8) mmHg
AO 106/68 (mean 84) mmHg
CORONARY ANGIOGRAPHY
LM: normal
LAD: gives rise to one large diagonal branch. There is mild calcification and mild luminal narrowing at an area of myocardial bridge in the mid-vessel.
LCx: large vessel giving rise to a small OM1, large OM2, and small OM3. There is no coronary artery disease.
RCA: large dominant vessel giving rise to a moderate caliber RPDA, moderate caliber LPL1, and small LPL2. There is no coronary artery disease.
Closure Device: TR band
Radiation (mGy): 106.65
DAP (cm2.Gy): 7.1284
Fluoroscopy time (minutes): 2.2
CONCLUSIONS
1. Trace luminal irregularities in a right dominant system, no obstructive CAD
2. Normal LV filling pressure and no aortic stenosis
RECOMMENDATIONS:
1. Expectant management after cardiac catheterization via right radial approach
2. Continued primary prevention of coronary artery disease
Copy to: Dr. Apolonia Garsia,
Signed: Manuel George MD, PhD
--- NOTE | 2024-07-08 17:59 | W.PN.UPDATE ---
Update Note
Progress Note Update
At bedside to discuss plan with patient. She and her family at bedside are relieved that her cardiac cath was clear. She continues to have chest pain- she said it was completely gone after nitro but the pain 'crept back up.' We discussed results of
her cardiac cath, echo, EKG, troponin, and chest xray, and how all of these results are very reassuring that there are no acute/emergent heart or lung problems. Since her procedure, she is tolerating PO solids and liquids, no dysphagia/odynophagia.
We discussed other possible causes of her symptoms and that the workup and management can safely and effectively be done outpatient. She is stable for discharge home after removal of TR band, and she is agreeable. Discussed return to ED precautions
for new or worsening cardiopulm symptoms.
Subsequently informed by nursing that following the removal protocol of TR band, the site began to bleed. TR band replaced and will repeat removal protocol. Patient to stay overnight for observation. Anticipate discharge home tomorrow.
--- NOTE | 2024-07-08 19:00 | PTCARENOTE ---
1730 Noted when TR band was removed, right radial puncture site started to have bleeding. Pressure applied for 10 minutes. 1800 Nurse from [employer] Chief [employer] and Dr. Guillen notified and here to see pt. bean sprout laborer nurse reapplied TR band and placed 12 ml of air
and instructed to proceed to remove 4 ml instead of 3ml per TR band protocol orders.
1900 Report given to public health epidemiologist nurse and 4ml of air removed from TR band, no bleeding noted.
TR band remain intact.
[2024-07-08] MEDS: TYLENOL 650 MG PO (19:37)
[2024-07-08] MEDS: CRESTOR 5 MG PO (21:12)
[2024-07-09 03:55] VITALS: BP 88/56
[2024-07-09 06:00] VITALS: BMI 25.1
--- NOTE | 2024-07-09 07:24 | W.PN.HOSP.TC ---
Addendum entered and electronically signed by Gregor Baez MD 07/09/24 20:35:
Attending Addendum-
I saw and evaluated the patient. I reviewed the resident�s note and agree with findings and plan as documented in the resident�s note. Sub: no further CP. Had migraine. Kept ON due to radial site bleed which has resolved. This AM was noted to be
febrile x 1. Repeat temp checked WNL. Full 12 point ROS reviewed and negative except as documented Exam: Vitals reviewed in chart GEN- NAD heart RRR lungs clear abd soft LE no edema Right radial site CDI no bleeding appreciated pulses intact.
# Typical Chest pain
-sxs and family hx highly suspicious for cardiac etiology
-completely relieved with nitro
-cardiac cath 07/08-1. Trace luminal irregularities in a right dominant system, no obstructive CAD
2. Normal LV filling pressure and no aortic stenosis
- stable for DC home and follow up possible coronary artery vasospasm vs GI etiology
# Hyperlipidemia
- cont crestor
# GERD
-cont protonix
# Depression
- cont Wellbutrin
# Hx Pneumothoraces s/p Thoracotomy
# RA
-Takes Methotrexate and Orencia as outpatient
# Hx Migraines
-hold Eletriptan
# Cervical Radiculopathy
-cont Gabapentin
-cont Cyclobenzaprine
DVT PPx SCD
FULL CODE
Dispo-DC home today
Time spent coordinating care, DC planning, review of DC plan of care with resident, transition of care, review of records, med rec/scripts sent electronically, consults, notes, d/w consultants, nursing, , and CM� 35 mins
Original Note:
Today's Communication/Plan
-
Discharge home today
Assessment / Plan
Assessment / Plan
59 year old female with PMH asthma, COPD, pneumothoraces s/p thoracotomy with bleb resection, HLD, RA, hiatal hernia who presented to ED 07/07 for chest pain.
#Noncardiac chest pain
#Shortness of breath
- Differential diagnosis at time of admission included ACS, angina, esophageal spasm, hiatal hernia
- Taht her pain was relieved by nitro initially raised concern for angina or spasm. However, reassured by stable vitals, EKG, negative troponin x3
- Patient previously tried inhaler, tylenol, advil, dietary modifications, [place], pantoprazole, gabapentin, lorazepam, methylprednisolone with no relief, which decreases concern for asthma, msk, GERD, anxiety, or RA related causes of chest pain.
- Reviewed chest xray report and images, negative for acute cardiopulm abnormality.
- Lipid panel, A1C, BMP wnl
- Echo wnl
- Cardiac cath negative for obstructive CAD
- Stable for discharge home. She will follow up with her pharmacy technologist at [facility]. Recommended she call office regarding her scheduled stress test.
- She requested more information regarding esophageal spasm which I will include in discharge paperwork.
#Asthma, COPD- home albuterol inhaler prn
#HLD- home home rosuvastatin 5mg daily
#RA, cervical radiculopathy- continue home gabapentin 400mg TID, cyclobenzaprine prn; has not required tramadol in >1 month
#GERD- continue home pantoprazole 40mg daily
#migraine- has not required home eletriptan in 1-2 months
#anxiety- continue home buproprion 150mg daily
Dispo: Discharge home today
Anticipated Discharge: Today
Subjective/Interval History
-
Date of Service: July 09, 2024
No acute events overnight. No further bleeding or oozing from right radial site. Not currently experiencing chest pain, shortness of breath. She reports mild headache and nausea, and feels like her typical migraine is coming on. She denies fevers,
chills, chest pain, shortness of breath, vomiting, abdominal pain. Tolerating PO diet, ambulating independently. She would like to go home today.
Objective Data
-
Labs:
Laboratory Results
07/09/24
07:05
WBC Pending
Hgb Pending
Hct Pending
Plt Count Pending
Sodium Pending
Potassium Pending
Chloride Pending
Carbon Dioxide Pending
BUN Pending
Creatinine Pending
Glucose Pending
Calcium Pending
Vital Signs:
Vital Signs
Temp Pulse Resp BP Pulse Ox
97.7 F 65 16 88/56 100
07/09/24 03:55 07/09/24 03:55 07/09/24 03:55 07/09/24 03:55 07/09/24 03:55
I&O
07/08/24 07/09/24 07/10/24
06:59 06:59 06:59
Intake Total 240 / 240 480 / 480
Balance 240 / 240 480 / 480
Review of Systems
-
History Source: Patient
All other systems: Reviewed and negative
Physical Exam
-
General: Well Developed, Well Nourished, No Apparent Distress, Comfortable and Conversant
HEENT: Normocephalic and Atraumatic
Respiratory: Clear to Auscultation and Non Labored Respirations
Cardiac: Regular Rhythm and S1/S2
GI: Soft, Nontender, Nondistended and Normal Bowel Sounds
Musculoskeletal: No Cyanosis and No Edema
Skin: Warm, Dry and IV Access / Catheter Site (Ecchymosis where TR band was placed yesterday. No active bleeding from R radial site. Radial pulses intact bilaterally. Distal UE well perfused bilaterally)
Neuro: Awake, Alert, Oriented and Nonfocal/Grossly Intact
Psych: Calm
[2024-07-09 07:27] LABS: Hematocrit 36.3 % (37.0-47.0); Hemoglobin 11.9 g/dL (12.0-16.0); Mean Corp Hgb Conc. 32.8 g/dL (33.0-37.0); Mean Corpuscular Hgb 28.9 pg (27.0-31.0); Mean Corpuscular Volume 88.1 fL (81.0-99.0); Mean Platelet Volume 9.5 fL (7.4-10.4); Platelet Count 210 10^3/uL (130-400); Red Blood Cell Count 4.12 10^6/uL (4.20-5.40); Red Cell Dist. Width 14.8 % (11.5-14.5); White Blood Cell Count 6.4 10^3/uL (4.8-10.8)
--- NOTE | 2024-07-09 07:27 | W.DCSUMMARY ---
Addendum entered and electronically signed by Gregor Baez MD 07/10/24 14:00:
Read, reviewed, and agree. See same day progress note for additional details.
Fortunato Baez MD
Original Note:
Documented by User: Vivi Osborne MD, Resident 07/09/24 23:46
Discharge Summary
Discharge Data
Date of Admission: 07/07/24
Date of Discharge: 07/09/24
-
Pending Results: No
Hospital Course
Discharging Physician : Dr. Osborne, Dr. Baez
Disposition : Home
Primary care physician : Dr. Garsia
Principal Discharge diagnosis : Chest pain unknown etiology
Chronic Discharge diagnosis : h/o pneumothoraces s/p thoracotomy, hyperlipidemia, GERD, depression, RA, migraines, cervical radiculopathy
Hospital Course : Presented to the hospital for chest pain, which was relieved by nitro in ED. Cardiac catheterization and workup for ACS was negative. On day of discharge, she was stable. She was discharged home. She will follow up with PCP,
cardiology, ans GI to continue outpatient workup.
Important imaging findings :
Chest xray 07/07/24
IMPRESSION:
No acute cardiopulmonary abnormality.
Procedure findings :
Cardiac catheterization 07/08/24
CONCLUSIONS
1. Trace luminal irregularities in a right dominant system, no obstructive CAD
2. Normal LV filling pressure and no aortic stenosis
Discharge Plan
-
Patient Disposition: Home (Routine Discharge)
Discharge Diagnosis/Procedures: Chest pain s/p cardiac catheterization
Condition: Good
Diet: As tolerated and Regular
Activity: As tolerated
Driving Restrictions: No driving for 24 hours
Instructions: Hiatal hernia, Chest Pain That Is Not Caused by the Heart (DC), Cardiac Catheterization (DC), Esophageal Manometry, Chest Pain NON-DHP Projection Engineer Follow Up
Stand Alone Forms: DC Instructions- Cath/EP Lab
Referrals:
Jose Miguel Guevara MD [Other] - in two to three weeks
()
Kassy Yanez MD [Active] - (Follow up with GI as needed)
Apolonia aGrsia DO [Family Provider] -
Prescriptions:
New
aspirin 81 mg Tablet,Chewable
81 mg PO DAILY Qty: 30 0RF
Continued
albuterol sulfate 1 PUFF HFA aerosol inhaler
1 puff inhalation PRN PRN (Reason: sob)
tramadol 50 MG tablet
50 mg PO BIDPRN PRN (Reason: if maxalt doesnot work)
Patient Comments:
patient brass pickler on 01/22/21 #20
folic acid 1 MG tablet
1 mg PO DAILY
cyclobenzaprine 10 mg Tablet
10 mg PO PRN PRN (Reason: neck pain)
gabapentin 400 mg Capsule
400 mg PO TID
pantoprazole 40 mg Tablet,Delayed Release (Dr/Ec)
40 mg PO DAILY
eletriptan 40 mg Tablet
40 mg PO PRN PRN (Reason: migraines)
rosuvastatin [Crestor] 5 mg Tablet
5 mg PO DAILY
cholecalciferol (vitamin D3) [Vitamin D3] 50 mcg (2,000 unit) Capsule
50 mcg PO DAILY
Orencia 125 mg/mL Syringe
250 mg SC DIRECTED
Patient Comments:
Infusion every 4 weeks
bupropion HCl 150 mg Tablet Extended Release 24 Hr
150 mg PO DAILY
Discharge Orders:
Discharge Patient (As Directed); Ordered 07/09/24
Ordered By: Vivi Osborne
Discharge Date and Time
Discharge Date/Time: 07/09/24 15:28
Print Language: JAMAICAN

Documented by User: Gregor Baez MD 07/10/24 14:00
Discharge Summary
Discharge Data
Date of Admission: 07/07/24
Date of Discharge: 07/10/24
Discharge Plan
-
Patient Disposition: Home (Routine Discharge)
Discharge Diagnosis/Procedures: Chest pain s/p cardiac catheterization
Condition: Good
Diet: As tolerated and Regular
Activity: As tolerated
Driving Restrictions: No driving for 24 hours
Instructions: Hiatal hernia, Chest Pain That Is Not Caused by the Heart (DC), Cardiac Catheterization (DC), Esophageal Manometry, Chest Pain NON-DHP Projection Engineer Follow Up
Stand Alone Forms: DC Instructions- Cath/EP Lab
Referrals:
Jose Miguel Guevara MD [Other] - in two to three weeks
()
Kassy Yanez MD [Active] - (Follow up with GI as needed)
Apolonia Garsia DO [Family Provider] -
Prescriptions:
New
aspirin 81 mg Tablet,Chewable
81 mg PO DAILY Qty: 30 0RF
Continued
albuterol sulfate 1 PUFF HFA aerosol inhaler
1 puff inhalation PRN PRN (Reason: sob)
tramadol 50 MG tablet
50 mg PO BIDPRN PRN (Reason: if maxalt doesnot work)
Patient Comments:
patient brass pickler on 01/22/21 #20
folic acid 1 MG tablet
1 mg PO DAILY
cyclobenzaprine 10 mg Tablet
10 mg PO PRN PRN (Reason: neck pain)
gabapentin 400 mg Capsule
400 mg PO TID
pantoprazole 40 mg Tablet,Delayed Release (Dr/Ec)
40 mg PO DAILY
eletriptan 40 mg Tablet
40 mg PO PRN PRN (Reason: migraines)
rosuvastatin [Crestor] 5 mg Tablet
5 mg PO DAILY
cholecalciferol (vitamin D3) [Vitamin D3] 50 mcg (2,000 unit) Capsule
50 mcg PO DAILY
Orencia 125 mg/mL Syringe
250 mg SC DIRECTED
Patient Comments:
Infusion every 4 weeks
bupropion HCl 150 mg Tablet Extended Release 24 Hr
150 mg PO DAILY
Discharge Orders:
Discharge Patient (As Directed); Ordered 07/09/24
Ordered By: Vivi Osborne
Discharge Date and Time
Discharge Date/Time: 07/09/24 15:28
Print Language: JAMA[place]
[2024-07-09 07:40] LABS: Blood Urea Nitrogen 15 mg/dl (7-17); Calcium 9.5 mg/dl (8.4-10.2); Carbon Dioxide 31 mmol/L (22-30); Chloride 104 mmol/L (98-107); Estimated Creatinine Clearance 73 ml/min; Glucose 85 mg/dl (70-99); Potassium 4.3 mmol/L (3.5-5.1); Sodium 144 mmol/L (135-145); eGFR > 60.00
[2024-07-09 07:47] VITALS: BP 117/70
[2024-07-09] MEDS: TYLENOL 650 MG PO (08:27)
[2024-07-09] MEDS: NEURONTIN 400 MG PO (08:27)
[2024-07-09] MEDS: FOLVITE 1 MG PO (08:27)
[2024-07-09] MEDS: LOW STRENGTH ASPIRIN 81 MG PO (08:27)
[2024-07-09] MEDS: PROTONIX IV 40 MG IV (08:28)
[2024-07-09] MEDS: NSS (PRESERVATIVE FREE) 10 ML IV (08:28)
[2024-07-09] MEDS: WELLBUTRIN XL (24 hour extended release) 150 MG PO (08:28)
--- NOTE | 2024-07-09 10:31 | W.PN.UPDATE ---
Update Note
Progress Note Update
She is feeling well w/o chest pain or other cardiac symptoms. Right radial cath site intact, ecchymosis noted, no bruit, mild tenderness. Cath w/o obstructive CAD. She will follow up with her exterminator at [facility], stable for d/c from
cardiac perspective.
[2024-07-09 11:22] VITALS: BP 128/67
[2024-07-09 12:22] VITALS: BP 128/67
--- NOTE | 2024-07-09 14:13 | CM ---
CM following re: discharge planning.
Reviewed pt's chart.
Discharge order noted.
Pt is aware and she stated her will transport home. Pt has OBS status, no IMM review needed.
D/C plan: home no needs. to transport.
[2024-07-09 15:28] VITALS: BP 116/74
== END 2024-07-09 15:28 | disposition home or self-care (01) ==
LOC: 4 WEST ACU 21:36
PROVIDERS: Nurse Practitioner; Physician Assistant; Student in an Organized Health Care Education/Training Program; ADMITTING PHYSICIAN Student in an Organized Health Care Education/Training Program; ATTENDING PHYSICIAN Family Medicine; CONSULT PHYSICIAN Internal Medicine; EMERGENCY PHYSICIAN Emergency Medicine; FAMILY PHYSICIAN Family Medicine
DX: R07.89 Other chest pain (principal); R00.1 Bradycardia, unspecified; R06.02 Shortness of breath; F41.9 Anxiety disorder, unspecified; R50.9 Fever, unspecified; J44.89 Other specified chronic obstructive pulmonary disease; M06.9 Rheumatoid arthritis, unspecified; F32.A Depression, unspecified; K59.00 Constipation, unspecified; R51.9 Headache, unspecified; I45.10 Unspecified right bundle-branch block; E78.5 Hyperlipidemia, unspecified; K21.9 Gastro-esophageal reflux disease without esophagitis; M54.12 Radiculopathy, cervical region; R11.0 Nausea; K30 Functional dyspepsia; Z88.0 Allergy status to penicillin; Z88.8 Allergy status to other drugs, medicaments and biological substances; Z88.1 Allergy status to other antibiotic agents; Z82.49 Family history of ischemic heart disease and other diseases of the circulatory system
CPT/HCPCS: 71046; 80048; 80053; 80061; 83036; 84484; 85025; 85027; 85730; 93005; 93306; 93458; 99285; C1894; G0378; Q9967

== ENCOUNTER → 2024-07-22 14:16 | Outpatient (REF) | payer BC, MEDICARE, SELFPAY | LOC: HWRAD 14:16 | PROVIDERS: ATTENDING PHYSICIAN Internal Medicine Gastroenterology; FAMILY PHYSICIAN Family Medicine; REFERRING PHYSICIAN Internal Medicine | DX: R07.89 Other chest pain (principal); R93.89 Abnormal findings on diagnostic imaging of other specified body structures | CPT/HCPCS: 71260; Q9967 ==

== ENCOUNTER → 2024-09-01 13:49 | Outpatient (REF) | payer BC, MEDICARE, SELFPAY | LOC: RAD 13:49 | PROVIDERS: ATTENDING PHYSICIAN Internal Medicine Rheumatology; FAMILY PHYSICIAN Family Medicine | DX: M06.00 Rheumatoid arthritis without rheumatoid factor, unspecified site (principal) | CPT/HCPCS: 70330 ==

== ENCOUNTER → 2024-09-22 11:40 | Outpatient (REF) | payer BC, MEDICARE, SELFPAY | LOC: WDC 11:40 | PROVIDERS: ATTENDING PHYSICIAN Family Medicine | DX: Z12.31 Encounter for screening mammogram for malignant neoplasm of breast (principal) | CPT/HCPCS: 77063; 77067 ==

== ENCOUNTER → 2024-12-30 13:00 | Outpatient (REF) | payer BC, MEDICARE, SELFPAY | LOC: RAD 13:00 | PROVIDERS: ATTENDING PHYSICIAN Nurse Practitioner Family | DX: S09.90XA Unspecified injury of head, initial encounter (principal) | CPT/HCPCS: 70450 ==

== ENCOUNTER → 2025-02-14 14:16 | Outpatient (REF) | payer BC, MEDICARE, SELFPAY ==
[2025-02-14 15:30] LABS: Hematocrit 40.1 % (37.0-47.0); Hemoglobin 12.9 g/dL (12.0-16.0); Mean Corp Hgb Conc. 32.2 g/dL (33.0-37.0); Mean Corpuscular Hgb 28.1 pg (27.0-31.0); Mean Corpuscular Volume 87.4 fL (81.0-99.0); Mean Platelet Volume 9.6 fL (7.4-10.4); Platelet Count 281 10^3/uL (130-400); Red Blood Cell Count 4.59 10^6/uL (4.20-5.40); Red Cell Dist. Width 14.9 % (11.5-14.5)
[2025-02-14 15:45] LABS: Erythrocyte Sed Rate 16 mm/hour (0-20)
[2025-02-14 15:57] LABS: ALT (SGPT) 22 U/L (0-35); AST (SGOT) 27 U/L (14-36); Albumin 4.7 g/dl (3.5-5.0); Alkaline Phosphatase 77 U/L (38-126); Blood Urea Nitrogen 22 mg/dl (7-17); Calcium 10.1 mg/dl (8.4-10.2); Carbon Dioxide 28 mmol/L (22-30); Chloride 104 mmol/L (98-107); Glucose 84 mg/dl (70-99); Sodium 141 mmol/L (135-145); Total Bilirubin 0.5 mg/dl (0.2-1.3); Total Protein 6.9 g/dl (6.3-8.2); eGFR > 60.00
[2025-02-14 16:09] LABS: C-Reactive Protein < 5.00 mg/L (0.0-10.00)
== END ==
LOC: REG 14:16
PROVIDERS: ATTENDING PHYSICIAN Internal Medicine Rheumatology; FAMILY PHYSICIAN Student in an Organized Health Care Education/Training Program
DX: R06.2 Wheezing (principal); M06.00 Rheumatoid arthritis without rheumatoid factor, unspecified site
CPT/HCPCS: 36415; 71046; 80053; 85027; 85652; 86140

== ENCOUNTER → 2025-02-15 11:36 | Outpatient (REF) | payer BC, MEDICARE, SELFPAY ==
[2025-02-17 09:24] LABS: Quantiferon Mitogen minus NIL 9.95 IU/mL; Quantiferon NIL 0.05 IU/mL; Quantiferon Plus TB1 minus NIL 0.02 IU/mL (<=0.34); Quantiferon Plus TB2 minus NIL 0.01 IU/mL (<=0.34); Quantiferon TB Gold Plus Negative (Negative)
== END ==
LOC: REG 11:36
PROVIDERS: ATTENDING PHYSICIAN Internal Medicine Rheumatology; FAMILY PHYSICIAN Family Medicine
DX: M06.00 Rheumatoid arthritis without rheumatoid factor, unspecified site (principal)
CPT/HCPCS: 36415; 86480

== ENCOUNTER → 2025-02-21 11:16 | Outpatient (REF) | payer BC, MEDICARE, SELFPAY | LOC: HWRAD 11:16 | PROVIDERS: ATTENDING PHYSICIAN Internal Medicine Gastroenterology; FAMILY PHYSICIAN Student in an Organized Health Care Education/Training Program | DX: R10.12 Left upper quadrant pain (principal) | CPT/HCPCS: 76700 ==

== ENCOUNTER → 2025-04-08 12:08 | Outpatient (REF) | payer BC, MEDICARE, SELFPAY | LOC: PAVMRI 12:08 | PROVIDERS: ATTENDING PHYSICIAN Podiatrist Foot Surgery; FAMILY PHYSICIAN Student in an Organized Health Care Education/Training Program | DX: G57.62 Lesion of plantar nerve, left lower limb (principal); G57.61 Lesion of plantar nerve, right lower limb | CPT/HCPCS: 73718 ==

== ENCOUNTER → 2025-04-18 16:38 | Outpatient (REF) | payer BC, MEDICARE, SELFPAY | LOC: RCS 16:38 | PROVIDERS: ATTENDING PHYSICIAN Student in an Organized Health Care Education/Training Program | DX: R06.02 Shortness of breath (principal); R06.01 Orthopnea | CPT/HCPCS: 71260; 93306; Q9967 ==

== ENCOUNTER → 2025-04-21 07:44 | Outpatient (REF) | payer BC, MEDICARE, SELFPAY | LOC: RCS 07:44 | PROVIDERS: ATTENDING PHYSICIAN Student in an Organized Health Care Education/Training Program | DX: R06.02 Shortness of breath (principal) | CPT/HCPCS: 78452; 93017; A9500; J2785 ==

== ENCOUNTER 2025-05-07 20:23 | Emergency (ER) | payer BC, MEDICARE, SELFPAY ==
[2025-05-07 20:30] VITALS: BP 130/74
[2025-05-07 20:45] VITALS: BP 117/77
[2025-05-07 20:52] VITALS: BMI 25.2
[2025-05-07 20:53] LABS: % Basophils 0.9 % (0-2); % Eosinophils 2.1 % (0-6); % Immature Granulocytes 0.4 % (0-0.5); % Lymphocytes 26.8 % (20.5-51.1); % Monocytes 8.2 % (1.7-9.3); % Neutrophils 61.6 % (42.2-75.2); Absolute Basophils 0.1 10^3/uL (0-0.2); Absolute Eosinophils 0.2 10^3/uL (0-0.7); Absolute Lymphocytes 2.1 10^3/uL (1.2-3.4); Absolute Monocytes 0.7 10^3/uL (0.1-0.6); Absolute Neutrophils 4.9 10^3/uL (1.4-6.5); Hematocrit 37.3 % (37.0-47.0); Hemoglobin 12.5 g/dL (12.0-16.0); Mean Corp Hgb Conc. 33.5 g/dL (33.0-37.0); Mean Corpuscular Hgb 29.1 pg (27.0-31.0); Mean Corpuscular Volume 86.9 fL (81.0-99.0); Mean Platelet Volume 9.6 fL (7.4-10.4); Nucleated Red Blood Cells % 0 %; Platelet Count 271 10^3/uL (130-400); Red Blood Cell Count 4.29 10^6/uL (4.20-5.40); Red Cell Dist. Width 14.8 % (11.5-14.5)
--- NOTE | 2025-05-07 20:59 | ED.GENMED ---
History of Present Illness
General
Chief Complaint: Chest Pain
Time Seen by Provider: 05/07/25 20:47
History of Present Illness
History of Present Illness:
Patient presents to the emergency department with chest pain and palpitations. She reports symptoms have been ongoing for the past few weeks though they have been worsening over the past couple of days. She reports palpitations, fatigue, some
dizziness and shortness of breath and cough. No fevers or chills.
Past History
Past History
ED Past Medical History: Asthma, COPD and Other (pneumothoraces, status post thoracotomy with removal of blebs, depression, migraine headaches, rheumatoid arthritis, uterine ablation, COPD, asthma)
ED Past Surgical History: , Gynecological and Other (Thoracotomy)
Social History
Tobacco: Non-smoker
Alcohol: Occasional
Living: with family
Employment: Employed
Family History
Family History: Other (Rheumatoid arthritis)
Phy Exam
Physical Exam
Physical Exam:
GENERAL APPEARANCE: NAD, well developed/ well nourished
EYES lids/conjunctiva normal
EARS/NOSE/THROAT Mucous membranes moist, uvula midline without oral pharyngeal erythema, exudate or swelling
HEAD/NECK normocephalic atraumatic, neck is supple.
RESPIRATORY respiratory effort normal, speaks in full sentences, no accessory muscle use. Lungs clear to auscultation without rhonchi, wheezes, rales
CARDIAC Regular rate and rhythm, no edema.
ABDOMINAL Soft, ND/NT. No pulsatile masses on exam, rebound tenderness, Kendrick sign or pain over Mcburney's point.
MUSCLES/EXTREMITIES No abnormal range of motion, no swelling.
SKIN Warm, pink and dry. No rashes
NEUROLOGICAL Speech is clear and appropriate. Normal level of consciousness. 5/5 strength in all extremities.
PSYCH Normal mood and affect. Judgement/competence is appropriate
Scores
Heart Score for Chest Pain Patients
STEMI patient?: No
History: Slightly or Non-Suspicious
ECG: Nonspecific Repolarization
Age: >45 - <65 years
Risk Factors: 1 or 2 Risk Factors
Troponin: </= Normal Limit
Heart Score for Chest Pain Patients: 3
Heart Score Risk: 2.5% MACE over next 6 weeks
Course
Orders/Labs/Results
Orders:
Orders
05/07/25 20:26
ECG [Electrocardiogram (*1)] Urgent
Reason for Study: Chest Pain
EKG- Treatment ONCE
05/07/25 20:36
Cardiac Monitoring- Treatment ONCE
IV Insert/Care/Rem.- Treatment PRN
Pulse Ox/spot Check [RESP] Urgent
Quantity: 1
Special Instructions: ON ROOM AIR
05/07/25 20:46
Complete Blood Count/With Diff Urgent
Comprehensive Metabolic Panel Urgent
Troponin I Urgent
05/07/25 21:25
CR Chest - 2 Views Urgent
Comment:
Reason For Exam: cough, cp
05/07/25 22:32
D-Dimer Urgent
05/08/25 00:02
CT Chest PE Study Urgent
Reason For Exam: +ddimer sob
Abnormal Lab Results
05/07/25 05/07/25
20:46 22:32
RDW 14.8 H %
(11.5-14.5)
Absolute Monos (auto) 0.7 H 10^3/uL
(0.1-0.6)
D-Dimer 1.15 H ug/mlFEU
(0.00-0.50)
Potassium 3.4 L mmol/L
(3.5-5.1)
Chloride 112 H mmol/L
(98-107)
Carbon Dioxide 19 L mmol/L
(22-30)
BUN 18 H mg/dl
(7-17)
Glucose 106 H mg/dl
(70-99)
06/29/25 20:46
05/07/25 20:46
Vital Signs
Initial and Last Documented VS:
Initial Vital Signs
Temp Pulse Resp BP Pulse Ox
98.4 F 64 16 130/74 99
05/07/25 20:30 05/07/25 20:30 05/07/25 20:30 05/07/25 20:30 05/07/25 20:30
Last Documented Vital Signs
Temp Pulse Resp BP Pulse Ox
98.4 F 46 12 115/55 100
05/07/25 20:30 05/08/25 01:30 05/08/25 01:30 05/08/25 01:00 05/08/25 01:30
*Pulse Oximetry
SaO2: 98
Oxygen Mode of Delivery: Room air
Patient hypoxic: no
*Critical Care Note
Total Time (30-74mins, 75-104mins- exclusive of procedures): Not Applicable
ED Attending Note
ED Attending Note
ED Attending Note:
Patient with chest pain and palpitations. Symptoms have been ongoing for the past couple of weeks. EKG and troponin negative greater than 6 hours from onset of symptoms ruling out myocardial ischemia. CTA of the chest negative for pulmonary
embolism or acute process in the chest. No significant pericardial effusion. Patient stable in the emergency department with sinus bradycardia which she states is her baseline. I instructed her to follow-up with her chief financial officer and outpatient
doctors for continued workup as an outpatient. Return precautions for worsening symptoms.
-
Portions of this chart may have been created with voice recognition software.� Occasional wrong word or��sound alike� substitutions may have occurred due to the inherent limitations of voice recognition software.
Discharge Plan
Departure
Patient Disposition: Home (Routine Discharge)
Date of Disposition: 05/08/25
Time of Disposition: 02:01
Patient with high blood pressure during this ER visit?: No
Discharge Problem:
Chest pain
Instructions: Chest Pain PCP Follow Up
Prescriptions:
No Action
albuterol sulfate 1 PUFF HFA aerosol inhaler
1 puff inhalation PRN PRN (Reason: sob)
tramadol 50 MG tablet
50 mg PO BIDPRN PRN (Reason: if maxalt doesnot work)
Patient Comments:
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
folic acid 1 MG tablet
1 mg PO DAILY
cyclobenzaprine 10 mg Tablet
10 mg PO PRN PRN (Reason: neck pain)
gabapentin 400 mg Capsule
400 mg PO TID
pantoprazole 40 mg Tablet,Delayed Release (Dr/Ec)
40 mg PO DAILY
eletriptan 40 mg Tablet
40 mg PO PRN PRN (Reason: migraines)
rosuvastatin [Crestor] 5 mg Tablet
5 mg PO DAILY
cholecalciferol (vitamin D3) [Vitamin D3] 50 mcg (2,000 unit) Capsule
50 mcg PO DAILY
Orencia 125 mg/mL Syringe
250 mg SC DIRECTED
Patient Comments:
Infusion every 4 weeks
bupropion HCl 150 mg Tablet Extended Release 24 Hr
150 mg PO DAILY
aspirin 81 mg Tablet,Chewable
81 mg PO DAILY Qty: 30 0RF
Referrals:
Gail Fox MD [Family Provider, Family Practice]
Activity Restrictions/Additional Instructions:
Your workup in the ER included EKG and troponin which were negative for any acute damage to the heart. CT scan of the chest did not reveal any blood clots, pneumonia, aortic pathology. There was no significant fluid around the heart.
Please follow up with your primary doctor for continued workup as an outpatient. Return to the ER with new or worsening symptoms
Interventions
Interventions:
*Risk Screen - Suicide Last Done: 05/07/25 20:30
*General Assessment Last Done: 05/07/25 20:52
*Neglect/Abuse Screening Last Done: 05/07/25 20:30
*ED- Fall Risk Assessment Last Done: 05/07/25 20:52
*ED COVID-19 Vaccine History Last Done: 05/07/25 20:52
ED- Cardiac Assessment Last Done: 05/07/25 20:52
Discharge Date and Time
Print Language: BURKIN[place]
[2025-05-07 21:00] VITALS: BP 112/65
[2025-05-07 21:09] LABS: ALT (SGPT) 15 U/L (0-35); AST (SGOT) 24 U/L (14-36); Albumin 4.6 g/dl (3.5-5.0); Alkaline Phosphatase 51 U/L (38-126); Blood Urea Nitrogen 18 mg/dl (7-17); Calcium 9.6 mg/dl (8.4-10.2); Carbon Dioxide 19 mmol/L (22-30); Chloride 112 mmol/L (98-107); Estimated Creatinine Clearance 70 ml/min; Glucose 106 mg/dl (70-99); Potassium 3.4 mmol/L (3.5-5.1); Sodium 141 mmol/L (135-145); Total Bilirubin 0.8 mg/dl (0.2-1.3); Total Protein 6.8 g/dl (6.3-8.2); eGFR > 60.00
[2025-05-07 21:17] LABS: Troponin I < 0.012 ng/ml
[2025-05-07 22:00] VITALS: BP 106/56
[2025-05-07 22:50] LABS: D-Dimer 1.15 ug/mlFEU (0.00-0.50)
[2025-05-07 23:00] VITALS: BP 125/38
[2025-05-08] VITALS: BP 126/43
[2025-05-08 01:00] VITALS: BP 115/55
[2025-05-08 02:00] VITALS: BP 106/58
== END 2025-05-08 02:22 | disposition home or self-care (01) ==
LOC: EMR 20:23
PROVIDERS: EMERGENCY PHYSICIAN Emergency Medicine; FAMILY PHYSICIAN Student in an Organized Health Care Education/Training Program
DX: R07.9 Chest pain, unspecified (principal); R00.2 Palpitations; R00.1 Bradycardia, unspecified; J44.89 Other specified chronic obstructive pulmonary disease; M06.9 Rheumatoid arthritis, unspecified
CPT/HCPCS: 99285; 71046; 71275; 80053; 84484; 85025; 85379; 93005; Q9967

== ENCOUNTER 2025-07-15 09:04 | Emergency (ER) | payer BC, MEDICARE, SELFPAY ==
[2025-07-15 09:12] VITALS: BP 116/55
--- NOTE | 2025-07-15 09:39 | ED.GENMED ---
History of Present Illness
General
Chief Complaint: Fainting/Passed Out
Time Seen by Provider: 07/15/25 09:21
History of Present Illness
History of Present Illness:
60-year-old female presents to the emergency department for evaluation after a syncopal event with resultant head injury, states that she got up this morning from sleep to go to the bathroom when she felt dizzy and fainted. She did strike her head
on the ground. She notes that she was at [facility] in [facility] 2 days ago for palpitations and had an unremarkable workup.
Past History
Past History
ED Past Medical History: Asthma, COPD and Other (pneumothoraces, status post thoracotomy with removal of blebs, depression, migraine headaches, rheumatoid arthritis, uterine ablation, COPD, asthma)
ED Past Surgical History: , Gynecological and Other (Thoracotomy)
Social History
Tobacco: Non-smoker
Alcohol: Occasional
Living: with family
Employment: Employed
Family History
Family History: Other (Rheumatoid arthritis)
Review of Systems
Review of Systems
Allergies reviewed?: Yes
All Other Systems: ROS reviewed and negative except as documented in HPI and ROS
Phy Exam
Physical Exam
Physical Exam:
GEN: Well appearing, NAD, WDWN
HEENT: Oral mucosa moist, no scleral icterus
Cardiac: Regular rate And rhythm, no murmurs
Lung: No respiratory distress, no tachypnea
MSK: No gross deformity or injuries
Skin: Good color, no pallor or jaundice, no rashes
Neuro: AO x3, moves all extremities freely, CN II-XII grossly intact
Psych: Calm, cooperative
Course
Orders/Labs/Results
Orders:
Orders
07/15/25 09:38
Electrocardiogram (*1) Urgent
Reason for Study: Syncope
CT Head W/o Iv Contrast Urgent
Comment:
Reason For Exam: head trauma
EKG- Treatment ONCE
07/15/25 09:53
Complete Blood Count/With Diff Urgent
Comprehensive Metabolic Panel Urgent
07/15/25 11:28
Orthostatic VS- Treatment ONCE
07/15/25 12:05
Ketorolac [Toradol] 15 mg IV NOW STA
Abnormal Lab Results
07/15/25
09:53
Absolute Lymphs (auto) 1.0 L 10^3/uL
(1.2-3.4)
Immature Gran % 0.6 H %
(0-0.5)
Lymphocytes % 19.5 L %
(20.5-51.1)
Chloride 108 H mmol/L
(98-107)
Glucose 100 H mg/dl
(70-99)
07/15/25 09:53
07/15/25 09:53
Vital Signs
Initial and Last Documented VS:
Initial Vital Signs
Temp Pulse Resp Pulse Ox
97.8 F 67 18 100
07/15/25 09:11 07/15/25 09:11 07/15/25 09:11 07/15/25 09:11
Last Documented Vital Signs
Temp Pulse Resp BP Pulse Ox
97.8 F 59 18 112/74 100
07/15/25 09:11 07/15/25 10:30 07/15/25 09:11 07/15/25 10:00 07/15/25 10:30
MDM/Problems Addressed
MDM/Problems Addressed:
Syncopal event was most likely vasovagal in nature based on history. No signs of significant cranial trauma by exam or imaging. She has no arrhythmias noted on telemetry monitoring. Given that prior episode of palpitations however this did not
correlate with current syncope, recommend outpatient cardiology follow-up for Holter monitor
Comment
Comment:
EKG independently interpreted by me shows normal sinus rhythm at a rate of [address] changes concerning for ischemia, right bundle branch block is noted
*Pulse Oximetry
SaO2: 100
Patient hypoxic: no
*Critical Care Note
Total Time (30-74mins, 75-104mins- exclusive of procedures): Not Applicable
ED Attending Note
-
Portions of this chart may have been created with voice recognition software.� Occasional wrong word or��sound alike� substitutions may have occurred due to the inherent limitations of voice recognition software.
Discharge Plan
Departure
Patient Disposition: Home (Routine Discharge)
Date of Disposition: 07/15/25
Time of Disposition: 12:55
Patient with high blood pressure during this ER visit?: No
Discharge Problem:
Syncope, vasovagal, Heart palpitations
Instructions: Syncope (Fainting) (DC)
Prescriptions:
No Action
albuterol sulfate 1 PUFF HFA aerosol inhaler
1 puff inhalation PRN PRN (Reason: sob)
tramadol 50 MG tablet
50 mg PO BIDPRN PRN (Reason: if maxalt doesnot work)
Patient Comments:
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
folic acid 1 MG tablet
1 mg PO DAILY
cyclobenzaprine 10 mg Tablet
10 mg PO PRN PRN (Reason: neck pain)
gabapentin 400 mg Capsule
400 mg PO TID
pantoprazole 40 mg Tablet,Delayed Release (Dr/Ec)
40 mg PO DAILY
eletriptan 40 mg Tablet
40 mg PO PRN PRN (Reason: migraines)
rosuvastatin [Crestor] 5 mg Tablet
5 mg PO DAILY
cholecalciferol (vitamin D3) [Vitamin D3] 50 mcg (2,000 unit) Capsule
50 mcg PO DAILY
Orencia 125 mg/mL Syringe
250 mg SC DIRECTED
Patient Comments:
Infusion every 4 weeks
bupropion HCl 150 mg Tablet Extended Release 24 Hr
150 mg PO DAILY
aspirin 81 mg Tablet,Chewable
81 mg PO DAILY Qty: 30 0RF
Referrals:
UNKNOWN - PT NOT,INTERVIEWE [Family Provider]
Interventions
Interventions:
*Risk Screen - Suicide Last Done: 07/15/25 10:03
*General Assessment Last Done: 07/15/25 10:03
*Neglect/Abuse Screening Last Done: 07/15/25 10:03
*Nursing Disposition Last Done: 07/15/25 13:11
ED- Cardiac Assessment Last Done: 07/15/25 10:03
ED- Neurological Assessment Last Done: 07/15/25 10:03
Discharge Date and Time
Discharge Date/Time: 07/15/25 13:17
Print Language: [place] ISLAND[place]
[2025-07-15 10:00] VITALS: BP 112/74
[2025-07-15 10:22] LABS: Hematocrit 38.6 % (37.0-47.0); Hemoglobin 12.9 g/dL (12.0-16.0); Mean Corp Hgb Conc. 33.4 g/dL (33.0-37.0); Mean Corpuscular Volume 85.4 fL (81.0-99.0); Nucleated Red Blood Cells % 0 %; Platelet Count 210 10^3/uL (130-400); Red Cell Dist. Width 13.7 % (11.5-14.5)
[2025-07-15 10:35] LABS: ALT (SGPT) 15 U/L (0-35); AST (SGOT) 24 U/L (14-36); Albumin 4.5 g/dl (3.5-5.0); Alkaline Phosphatase 45 U/L (38-126); Blood Urea Nitrogen 8 mg/dl (7-17); Calcium 9.3 mg/dl (8.4-10.2); Carbon Dioxide 25 mmol/L (22-30); Chloride 108 mmol/L (98-107); Glucose 100 mg/dl (70-99); Potassium 4.0 mmol/L (3.5-5.1); Sodium 139 mmol/L (135-145); Total Protein 6.5 g/dl (6.3-8.2); eGFR > 60.00
[2025-07-15 12:04] VITALS: BP 113/73; BP 116/67; BP 126/61; PULSE 64; PULSE 71; PULSE 75
[2025-07-15] MEDS: TORADOL 15 MG IV (12:22)
== END 2025-07-15 13:17 | disposition home or self-care (01) ==
LOC: EMR 09:04
PROVIDERS: Physician Assistant; EMERGENCY PHYSICIAN Emergency Medicine
DX: R55 Syncope and collapse (principal); R00.2 Palpitations; I45.10 Unspecified right bundle-branch block; J44.89 Other specified chronic obstructive pulmonary disease; F32.A Depression, unspecified; M06.9 Rheumatoid arthritis, unspecified; Z79.82 Long term (current) use of aspirin; Z82.61 Family history of arthritis
CPT/HCPCS: 99284; 96374; 70450; 80053; 85025; 93005

== ENCOUNTER → 2025-07-18 16:35 | Outpatient (REF) | payer MEDICARE, BC, SELFPAY | LOC: RAD 16:35 | PROVIDERS: ATTENDING PHYSICIAN Ophthalmology; FAMILY PHYSICIAN Student in an Organized Health Care Education/Training Program | DX: S02.831A Fracture of medial orbital wall, right side, initial encounter for closed fracture (principal) | CPT/HCPCS: 70480 ==

== ENCOUNTER → 2025-09-01 13:37 | Outpatient (REF) | payer BC, MEDICARE, SELFPAY ==
[2025-09-01 14:58] LABS: Hematocrit 43.1 % (37.0-47.0); Hemoglobin 13.2 g/dL (12.0-16.0); Mean Corp Hgb Conc. 30.6 g/dL (33.0-37.0); Mean Corpuscular Volume 90.7 fL (81.0-99.0); Nucleated Red Blood Cells % 0 %; Platelet Count 234 10^3/uL (130-400); Red Cell Dist. Width 14.3 % (11.5-14.5)
[2025-09-01 15:27] LABS: ALT (SGPT) 27 U/L (0-35); AST (SGOT) 31 U/L (14-36); Albumin 4.6 g/dl (3.5-5.0); Alkaline Phosphatase 55 U/L (38-126); Blood Urea Nitrogen 11 mg/dl (7-17); Calcium 9.4 mg/dl (8.4-10.2); Carbon Dioxide 25 mmol/L (22-30); Chloride 106 mmol/L (98-107); Glucose 88 mg/dl (70-99); Potassium 4.1 mmol/L (3.5-5.1); Sodium 136 mmol/L (135-145); Total Protein 7.0 g/dl (6.3-8.2); eGFR > 60.00
[2025-09-01 15:29] LABS: C-Reactive Protein < 5.00 mg/L (0.0-10.00)
[2025-09-01 15:47] LABS: FSH 86.4 mIU/ml
[2025-09-01 16:00] LABS: TSH 1.93 uIU/ml (0.47-4.68)
[2025-09-01 16:02] LABS: Cortisol, Random 6.4 ug/dl
== END ==
LOC: RAD 13:37
PROVIDERS: ATTENDING PHYSICIAN Physician Assistant; FAMILY PHYSICIAN Student in an Organized Health Care Education/Training Program; REFERRING PHYSICIAN Internal Medicine Endocrinology, Diabetes & Metabolism
DX: M79.662 Pain in left lower leg (principal); M06.00 Rheumatoid arthritis without rheumatoid factor, unspecified site; Z79.60 Long term (current) use of unspecified immunomodulators and immunosuppressants; E23.6 Other disorders of pituitary gland; S02.85XD Fracture of orbit, unspecified, subsequent encounter for fracture with routine healing
CPT/HCPCS: 36415; 70480; 73590; 80053; 82533; 82670; 83001; 83002; 84146; 84305; 84439; 84443; 85025; 85652; 86140

== ENCOUNTER → 2025-10-12 14:55 | Outpatient (REF) | payer BC, MEDICARE, SELFPAY | LOC: RAD 14:55 | PROVIDERS: ATTENDING PHYSICIAN Internal Medicine Endocrinology, Diabetes & Metabolism; FAMILY PHYSICIAN Student in an Organized Health Care Education/Training Program | DX: E04.1 Nontoxic single thyroid nodule (principal) | CPT/HCPCS: 76536 ==

== ENCOUNTER 2025-10-16 19:28 | Emergency (ER) | payer BC, MEDICARE, SELFPAY ==
[2025-10-16 19:31] VITALS: BP 121/77
[2025-10-16 19:51] LABS: Hematocrit 38.6 % (37.0-47.0); Hemoglobin 12.5 g/dL (12.0-16.0); Mean Corp Hgb Conc. 32.4 g/dL (33.0-37.0); Mean Corpuscular Volume 86.9 fL (81.0-99.0); Nucleated Red Blood Cells % 0 %; Platelet Count 216 10^3/uL (130-400); Red Cell Dist. Width 14.2 % (11.5-14.5)
[2025-10-16 20:15] LABS: ALT (SGPT) 36 U/L (0-35); AST (SGOT) 32 U/L (14-36); Albumin 4.6 g/dl (3.5-5.0); Alkaline Phosphatase 54 U/L (38-126); Blood Urea Nitrogen 18 mg/dl (7-17); Calcium 10.0 mg/dl (8.4-10.2); Carbon Dioxide 30 mmol/L (22-30); Chloride 103 mmol/L (98-107); Glucose 102 mg/dl (70-99); Potassium 4.3 mmol/L (3.5-5.1); Sodium 136 mmol/L (135-145); Total Protein 7.0 g/dl (6.3-8.2); eGFR > 60.00
[2025-10-16 21:12] VITALS: BP 108/63; BP 110/75; BP 122/65; PULSE 56; PULSE 63; PULSE 68
[2025-10-16 21:15] LABS: Urine Character Clear (Clear)
[2025-10-16] MEDS: NSS 1000 IV (21:20)
[2025-10-16 21:41] LABS: Urine Squamous Cell 0-2 /LPF (Few)
--- NOTE | 2025-10-16 21:44 | ED.GENMED ---
History of Present Illness
General
Chief Complaint: Blood Pressure Problem
Source: patient
Exam Limitations: none
Time Seen by Provider: 10/16/25 20:40
Nursing documentation reviewed up to this point in time: agreed with
History of Present Illness
History of Present Illness:
Patient to the emergency department for evaluation as recommended by her business banking sales assistant. Patient states she follows with cardiology through [facility]. She is currently being treated for hypotension. States she was originally placed on
midodrine but did not notice any improvement in her blood pressure. She was switched over to Florinef. She states that her blood pressure readings yesterday were in the mid 90s over 60s. She shared this information with her business banking sales assistant who
advised that she come to the emergency department for evaluation. Arrival to ED your blood pressure is 120/71. She has no other concerns.
Past History
Past History
ED Past Medical History: Asthma, COPD and Other (pneumothoraces, status post thoracotomy with removal of blebs, depression, migraine headaches, rheumatoid arthritis, uterine ablation, COPD, asthma)
ED Past Surgical History: , Gynecological and Other (Thoracotomy)
Social History
Tobacco: Non-smoker
Alcohol: Occasional
Living: with family
Employment: Employed
Family History
Family History: Other (Rheumatoid arthritis)
Review of Systems
Review of Systems
Allergies reviewed?: Yes
All Other Systems: ROS reviewed and negative except as documented in HPI and ROS
Constitutional: Reports no symptoms
EENT: Reports no symptoms
Respiratory: Reports no symptoms
Cardiac: Reports no symptoms
ABD/GI: Reports no symptoms
Musculoskeletal: Reports no symptoms
Skin: Reports no symptoms
Neurological: Reports no symptoms
Psychiatric: Reports no symptoms
Phy Exam
General Physical Exam
General Presentation: well appearing and no apparent distress
General age: appears stated age
General Skin: warm
General Habitus: normal
General Mental: alert
Cardiovascular Exam
Cardiovascular Exam: regular rate/rhythm
Musculoskeletal Exam
Musculoskeletal Exam: full ROM and neuro vasc intact
Skin Exam
Skin Exam: normal color
Psychiatric Exam
Psychiatric Exam: normal mood/affect
Course
Orders/Labs/Results
Orders:
Orders
10/16/25 19:39
CBC/With Diff [Complete Blood Count/With Diff] Urgent
Comprehensive Metabolic Panel Urgent
10/16/25 20:53
Electrocardiogram (*1) Urgent
Reason for Study: Vertigo / Dizzy
EKG- Treatment ONCE
Orthostatic VS- Treatment ONCE
0.9% Sodium Chloride 1000 ml [Nss] 1,000 ml IV BOLUS
10/16/25 21:06
Urinalysis Reflex To Culture Urgent
Date Specimen was Collected: 10/16/25
Time Specimen was Collected: 21:01
Urine Microscopic Reflex Cult Urgent
Urine Culture Urgent
KENDRICK Source: U
Specimen Description:
Date Specimen was Collected: 10/16/25
Time Specimen was Collected: 21:01
Abnormal Lab Results
10/16/25 10/16/25
19:39 21:06
MCHC 32.4 L g/dL
(33.0-37.0)
BUN 18 H mg/dl
(7-17)
Glucose 102 H mg/dl
(70-99)
ALT 36 H U/L
(0-35)
Ur Occult Blood Reflex 2+ A
(Negative)
Leukocyte Esterase Rfl 1+ A
(Negative)
Urine RBC 3-6 A /HPF
(0-2)
Urine Bacteria (Reflex) Moderate A
(Negative)
Urine Albumin (Reflex) 2+ A
(Neg - Trace)
10/16/25 19:39
10/16/25 19:39
Vital Signs
Initial and Last Documented VS:
Initial Vital Signs
Temp Pulse Resp BP Pulse Ox
98.8 F 83 16 121/77 97
10/16/25 19:31 10/16/25 19:31 10/16/25 19:31 10/16/25 19:31 10/16/25 19:31
Last Documented Vital Signs
Temp Pulse Resp BP Pulse Ox
98.8 F 76 18 121/77 98
10/16/25 19:31 10/16/25 21:15 10/16/25 21:15 10/16/25 19:31 10/16/25 21:44
*Radiology
Radiology exam reviewed: radiology read reviewed
*Pulse Oximetry
SaO2: 98
Oxygen Mode of Delivery: Room air
Patient hypoxic: no
Update Note
Update Note:
Patient to the emergency department for evaluation of low blood pressure readings that were recorded by patient at home yesterday. She has been normotensive while in ED, asymptomatic. Negative tilt. She reports having diarrhea over the past few
days. This may have contributed to her low blood pressure readings. Her business banking sales assistant advised her to ask for IV fluids. She was given a liter of normal saline while in ED. No concerning findings on examination tonight. Will discharge home and
she can follow-up with her business banking sales assistant and family doctor in AM. She was given instructions on signs and symptoms to return to the ED and she is agreeable to this plan.
ED Attending Note
-
Portions of this chart may have been created with voice recognition software.� Occasional wrong word or��sound alike� substitutions may have occurred due to the inherent limitations of voice recognition software.
Discharge Plan
Departure
Prescriptions:
No Action
albuterol sulfate 1 PUFF HFA aerosol inhaler
1 puff inhalation PRN PRN (Reason: sob)
tramadol 50 MG tablet
50 mg PO BIDPRN PRN (Reason: if maxalt doesnot work)
Patient Comments:
patient order picker on 01/22/21 #20
folic acid 1 MG tablet
1 mg PO DAILY
cyclobenzaprine 10 mg Tablet
10 mg PO PRN PRN (Reason: neck pain)
gabapentin 400 mg Capsule
400 mg PO TID
pantoprazole 40 mg Tablet,Delayed Release (Dr/Ec)
40 mg PO DAILY
eletriptan 40 mg Tablet
40 mg PO PRN PRN (Reason: migraines)
rosuvastatin [Crestor] 5 mg Tablet
5 mg PO DAILY
cholecalciferol (vitamin D3) [Vitamin D3] 50 mcg (2,000 unit) Capsule
50 mcg PO DAILY
Orencia 125 mg/mL Syringe
250 mg SC DIRECTED
Patient Comments:
Infusion every 4 weeks
bupropion HCl 150 mg Tablet Extended Release 24 Hr
150 mg PO DAILY
aspirin 81 mg Tablet,Chewable
81 mg PO DAILY Qty: 30 0RF
Referrals:
UNKNOWN - PT NOT,INTERVIEWE [Family Provider]
Interventions
Interventions:
*Risk Screen - Suicide Last Done: 10/16/25 19:35
*General Assessment Last Done: 10/16/25 21:11
*Neglect/Abuse Screening Last Done: 10/16/25 19:35
*ED COVID-19 Vaccine History Last Done: 10/16/25 21:11
*ED Influenza Vaccine History Last Done: 10/16/25 21:11
[facility] Fall Risk Assessment Tool Last Done: 10/16/25 21:15
ED- Cardiac Assessment Last Done: 10/16/25 21:28
ED- Neurological Assessment Last Done: 10/16/25 21:28
ED- Pulmonary Assessment Last Done: 10/16/25 21:28
Discharge Date and Time
Print Language: GREENLANDIC
== END 2025-10-16 22:21 | disposition home or self-care (01) ==
LOC: EMR 19:28
PROVIDERS: Nurse Practitioner; EMERGENCY PHYSICIAN Emergency Medicine
DX: I95.9 Hypotension, unspecified (principal); J44.89 Other specified chronic obstructive pulmonary disease; F32.A Depression, unspecified; G43.909 Migraine, unspecified, not intractable, without status migrainosus; M06.9 Rheumatoid arthritis, unspecified; Z82.61 Family history of arthritis
CPT/HCPCS: 99284; 96360; 80053; 81003; 81015; 85025; 87086; 93005